=== PATIENT | female | born 1995 | race Caucasian/White ===

== ENCOUNTER 2017-09-24 15:42 | Emergency (ER) | payer BC ==
--- OUTSIDE RECORDS SUMMARY | 2017-09-24 15:44 | XMS REPORT ---
:1995 [facility] Address [address] [place] [address] Dr. Yepez [address] [place] [address] Care Team Providers Name Role Phone UNKNOWN, REFFERING Primary Care Provider Unavailable VIRGINIA ZHOU M.D. Unavailable Unavailable Problems This patient has no known problems. Allergies, Adverse Reactions, Alerts This patient has no known allergies or adverse reactions. Medications This patient has no known medications. Encounters Start End Encounter Admission Attending Care Care Encounter Date/Time Date/Time Type Type Clinicians Facility Department ID 2017-05-09 2017-05-09 Outpatient C [facility] [id number] 10:15:00 10:15:00 VIRGINIA Arellano M.D. Results Test Description Test Time Test Comments Text Results Atomic Results Result Comments BHCG, Urine, Qualitative 2017-07-25 12:34:00 Test Item Value Reference Range Comments Preg Qual [Ur] (test code=HUHCG) Negative Negative BHCG, Urine, [id number] 12:16:00 Test Item Value Reference Range Comments Preg Qual [Ur] (test code=HUHCG) Negative Negative
[2017-09-24] MEDS ORDERED: MORPHINE 4 MG/ML SYR ONE (16:28)
[2017-09-24] MEDS ORDERED: ONDANSETRON 4 MG/2 ML VIAL ONE (16:28)
[2017-09-24 16:45] LABS: Absolute Lymphocytes (CBC) 3.2 K/uL (0.7-4.9); Absolute Monocytes 0.8 K/uL (0.1-1.3); Absolute Neutrophil 9.1 K/uL (1.8-8.0); Basophils % 0.4 % (0-1.3); Hematocrit 38.4 % (36.0-45.0); Lymphocytes % 24.3 % (15.3-44.8); MCH 28.6 pg (27.0-35.0); MCV 85.4 fL (80-100); MPV 8.9 fL (7.6-11.3); Monocytes % 6.1 % (3.3-12.3); RBC Red Blood Cell Count 4.49 M/uL (3.86-4.86)
[2017-09-24 16:55] LABS: Potassium 3.5 mEq/L (3.6-5.0)
[2017-09-24 16:56] LABS: Protime INR 1.01
[2017-09-24 17:02] LABS: Albumin 3.8 g/dL (3.2-5.5); Bilirubin Direct 0.2 mg/dL (0-0.2); Bilirubin Total 1.3 mg/dL (0.3-1.2); Protein, Total 7.4 g/dL (6.0-8.3)
[2017-09-24 18:02] LABS: Urine Blood NEGATIVE (NEG); Urine Glucose NEGATIVE (NEG); Urine Protein NEGATIVE (NEG); Urine pH 7.5 (5.0-7.0)
--- NOTE | 2017-09-24 18:55 | RAD REPORT ---
EXAM DESCRIPTION: CTAbdomen Pelvis W Contrast - 09/24/2017 6:37 pm CLINICAL HISTORY: Abdominal pain. ABD PAIN COMPARISON: No comparisons TECHNIQUE: Biphasic CT imaging of the abdomen and pelvis was performed with 100 ml non-ionic IV cont rast. All CT scans are performed using dose optimization technique as appropriate and may include automated exposure control or mA/KV adjustment according to patient size. FINDINGS: The lung bases are clear. The liver, spleen, pancreas, adrenal glands and kidneys are within normal limits. No bowel obstruction, free air, free fluid or abscess. Small subacute bruise is suspected along the r ight abdomen. The appendix is normal. No evidence of significant lymphadenopathy. No suspicious bony findings. IMPRESSION: No acute intra-abdominal or pelvic finding.
[2017-09-24 19:21] LABS: Urine Bacteria <20 /HPF (<20); Urine Culture Reflex Order NOT NEEDED; Urine RBC <5 /HPF (NONE SEEN)
--- NOTE | 2017-09-24 19:26 | EDPHYS ---
Physician Documentation [facility] Name: Latrell Tam Age: 22 yrs Sex: Female : 1995 Arrival Date: 09/24/2017 Time: 15:46 Bed 6 Private MD: None, None ED Physician Tawanda Moon HPI: 09/24 17:00 This 22 yrs old Female presents to ER via Ambulatory with complaints of pm1 Abdominal Problem. 17:00 The patient presents with abdominal pain in the periumbilical area. Onset: The pm1 symptoms/episode began/occurred 1.5 week(s) ago. The symptoms do not radiate. Associated signs and symptoms: Pertinent positives: bruising to abdomen, Pertinent negatives: nausea, vomiting, and diarrhea, dysuria, fever. The symptoms are described as achy. Modifying factors: The symptoms are alleviated by nothing, the symptoms are aggravated by touching the area. Severity of pain: in the emergency department the pain is unchanged. The patient has not experienced similar symptoms in the past. The patient has not recently seen a physician. 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 Pneumococcal vaccine is not up to date, Flu vaccine is not up to date. - Social history:: Smoking status: Patient uses tobacco products, smokes one-half pack cigarettes per day. - Ebola Screening: : Patient negative for fever greater than or equal to 101.5 degrees Fahrenheit, and additional compatible Ebola Virus Disease symptoms. ROS: 17:00 Constitutional: Negative for fever, chills, and weight loss, Eyes: Negative for injury, pm1 pain, redness, and discharge, ENT: Negative for injury, pain, and discharge, Neck: Negative for injury, pain, and swelling, Cardiovascular: Negative for chest pain, palpitations, and edema, Respiratory: Negative for shortness of breath, cough, wheezing, and pleuritic chest pain. 17:00 Back: Negative for injury and pain, : Negative for injury, bleeding, discharge, and swelling, MS/Extremity: Negative for injury and deformity. 17:00 Neuro: Negative for headache, weakness, numbness, tingling, and seizure. 17:00 Abdomen/GI: Positive for abdominal pain, Negative for nausea, vomiting, and diarrhea. 17:00 Skin: Positive for ecchymosis, of the umbilical area. Exam: 17:00 Constitutional: This is a well developed, well nourished patient who is awake, alert, pm1 and in no acute distress. Head/Face: Normocephalic, atraumatic. Eyes: Pupils equal round and reactive to light, extra-ocular motions intact. Lids and lashes normal. Conjunctiva and sclera are non-icteric and not injected. Cornea within normal limits. Periorbital areas with no swelling, redness, or edema. ENT: Nares patent. No nasal discharge, no septal abnormalities noted. Tympanic membranes are normal and external auditory canals are clear. Oropharynx with no redness, swelling, or masses, exudates, or evidence of obstruction, uvula midline. Mucous membranes moist. Neck: Trachea midline, no thyromegaly or masses palpated, and no cervical lymphadenopathy. Supple, full range of motion without nuchal rigidity, or vertebral point tenderness. No Meningismus. Chest/axilla: Normal chest wall appearance and motion. Nontender with no deformity. No lesions are appreciated. Cardiovascular: Regular rate and rhythm with a normal S1 and S2. No gallops, murmurs, or rubs. Normal PMI, no JVD. No pulse deficits. Respiratory: Lungs have equal breath sounds bilaterally, clear to auscultation and percussion. No rales, rhonchi or wheezes noted. No increased work of breathing, no retractions or nasal flaring. 17:00 Back: No spinal tenderness. No costovertebral tenderness. Full range of motion. Skin: Warm, dry with normal turgor. Normal color with no rashes, no lesions, and no evidence of cellulitis. MS/ Extremity: Pulses equal, no cyanosis. Neurovascular intact. Full, normal range of motion. 17:00 Abdomen/GI: Inspection: bruising, umbilical area, Bowel sounds: normal, Palpation: abdomen is soft and non-tender, mass, is not appreciated, rebound tenderness, is not appreciated. 17:00 Neuro: Orientation: is normal, Motor: is normal, moves all fours, strength is normal, Gait: is steady, at a normal pace, without difficulty. Vital Signs: 16:06 BP 135 / 89; Pulse 100; Resp 17; Temp 99.0; Pulse Ox 97% ; rk2 17:18 BP 126 / 95; Pulse 89; Resp 18; Pulse Ox 98% on R/A; ph 19:14 BP 102 / 77; Pulse 65; Resp 18; Pulse Ox 99% on R/A; ph MDM: 16:00 Patient medically screened. pm1 19:25 Data reviewed: vital signs. Data interpreted: Pulse oximetry: on room air is 99 %. pm1 Interpretation: normal. Counseling: I had a detailed discussion with the patient and/or guardian regarding: the historical points, exam findings, and any diagnostic results supporting the discharge/admit diagnosis, lab results, radiology results, the need for outpatient follow up, to return to the emergency department if symptoms worsen or persist or if there are any questions or concerns that arise at home. 09/24 16:08 Order name: Basic Metabolic Panel; Complete Time: 17:24 pm1 09/24 16:08 Order name: CBC with Diff; Complete Time: 17:24 pm1 09/24 16:08 Order name: Creatinine for Radiology; Complete Time: 17:24 pm1 09/24 16:08 Order name: Hepatic Function; Complete Time: 17:24 pm1 09/24 16:08 Order name: Lipase; Complete Time: 17:24 pm1 09/24 16:08 Order name: Urine Microscopic Only; Complete Time: 19:41 pm1 09/24 16:08 Order name: PT-INR; Complete Time: 17:24 pm1 09/24 16:08 Order name: Ptt, Activated; Complete Time: 17:24 pm1 09/24 16:08 Order name: CT Abd/Pelvis - W/Contrast; Complete Time: 19:15 pm1 09/24 17:55 Order name: Urine Dipstick--Ancillary (enter results) em09/24 17:55 Order name: Urine --Ancillary (enter results) em09/24 17:55 Order name: Urine Dipstick-Ancillary; Complete Time: 18:03 EDMS 09/24 17:55 Order name: Urine --Ancillary; Complete Time: 18:03 EDMS 09/24 16:08 Order name: Urine Test (obtain specimen); Complete Time: 17:52 pm1 09/24 16:08 Order name: IV Saline Lock; Complete Time: 16:49 pm1 09/24 16:08 Order name: Labs collected and sent; Complete Time: 16:49 pm1 09/24 16:08 Order name: Urine Dipstick-Ancillary (obtain specimen); Complete Time: 17:52 pm1 Administered Medications: 16:47 Drug: morphine 4 mg Route: IVP; Site: left antecubital; ph 19:13 Follow up: Response: No adverse reaction; Pain is decreased ph 16:47 Drug: Zofran 4 mg Route: IVP; Site: left antecubital; ph 19:13 Follow up: Response: No adverse reaction ph 16:48 Drug: NS 0.9% 1000 ml Route: IV; Rate: 1000 ml; Site: left antecubital; ph 19:12 Follow up: Response: No adverse reaction; IV Status: Completed infusion ph Disposition: 09/25 13:15 Co-signature as Attending Physician, Tawanda Moon MD. Disposition: 09/24/17 19:25 Discharged to Home. Impression: Unspecified abdominal pain. - Condition is Stable. - Discharge Instructions: Abdominal Pain, Adult, Contusion. - Medication Reconciliation Form, Thank You Letter form. - Follow up: Emergency Department; When: As needed; Reason: Worsening of condition. Follow up: Private Physician; When: 2 - 3 days; Reason: Recheck today's complaints, Continuance of care, Re-evaluation by your physician. - Problem is new. - Symptoms have improved. Signatures: Dispatcher [employer] EDVA Gayle Hannah RN RN Rocky Brown RN RN ao Biju Lake, ANCILLARY SPECIALIST ANCILLARY SPECIALIST pm1 Tawanda Moon MD MD Bere Saunders RN RN rk2 Corrections: (The following items were deleted from the chart) 09/24 19:51 19:25 09/24/2017 19:25 Discharged to Home. Impression: Unspecified abdominal pain. ao Condition is Stable. Forms are Medication Reconciliation Form, Thank You Letter, Antibiotic Education, Prescription Opioid Use. Follow up: Emergency Department; When: As needed; Reason: Worsening of condition. Follow up: Private Physician; When: 2 - 3 days; Reason: Recheck today's complaints, Continuance of care, Re-evaluation by your physician. Problem is new. Symptoms have improved. pm1
--- NOTE | 2017-09-24 19:26 | ER ---
Nurse's Notes [facility] Name: Latrell Tam Age: 22 yrs Sex: Female : 1995 Arrival Date: 09/24/2017 Time: 15:46 Bed 6 Private MD: None, None Diagnosis: Unspecified abdominal pain Presentation: 09/24 16:01 Presenting complaint: Patient states: Pt. noticed random bruising on her abd x 1 1/2 rk2 weeks ago. Denies trauma/assault. Transition of care: patient was not received from another setting of care. Onset of symptoms was September 24, 2017. Risk Assessment: Do you want to hurt yourself or someone else? Patient reports no desire to harm self or others. Initial Sepsis Screen: Does the patient meet any 2 criteria? No. Patient's initial sepsis screen is negative. Does the patient have a suspected source of infection? Yes:. Care prior to arrival: None. 16:01 Method Of Arrival: Ambulatory rk2 16:01 Acuity: MAI 3 rk2 Triage Assessment: 16:08 General: Appears in no apparent distress. well groomed, well developed, well nourished, rk2 Behavior is calm. Pain: Complains of pain in abdomen. 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 Pneumococcal vaccine is not up to date, Flu vaccine is not up to date. - Social history:: Smoking status: Patient uses tobacco products, smokes one-half pack cigarettes per day. - Ebola Screening: : Patient negative for fever greater than or equal to 101.5 degrees Fahrenheit, and additional compatible Ebola Virus Disease symptoms. Screenin:16 Abuse screen: Denies threats or abuse. Denies injuries from another. Nutritional ph screening: No deficits noted. Tuberculosis screening: No symptoms or risk factors identified. Fall Risk None identified. Assessment: 16:51 General: Appears in no apparent distress. uncomfortable, obese, well groomed, Behavior ph is calm, cooperative, appropriate for age, Denies fever, feeling ill. Pain: Complains of pain in middle of lower abdomen, below umbilical area. Neuro: Level of Consciousness is awake, alert, obeys commands, Oriented to person, place, time, situation. Cardiovascular: Denies chest pain, lightheadedness, shortness of breath. Respiratory: Airway is patent Respiratory effort is even, unlabored, Respiratory pattern is regular, symmetrical. GI: Abdomen is obese, bruised on right lower quadrant and left lower quadrant Bowel sounds present X 4 quads. Abd is soft X 4 quads Abdomen is tender to palpation in right lower quadrant and left lower quadrant Reports lower abdominal pain, nausea, Patient currently denies diarrhea, vomiting. Derm: Skin is intact, is healthy with good turgor, Skin is pink, warm \T\ dry. Musculoskeletal: Circulation, motion, and sensation intact. Range of motion: intact in all extremities. 17:16 Reassessment: Patient appears in no apparent distress at this time. Patient and/or ph family updated on plan of care and expected duration. Pain level reassessed. Patient is alert, oriented x 3, equal unlabored respirations, skin warm/dry/pink. Pt completed PO contrast \T\ 1700, CT notified. 18:30 Reassessment: Patient appears in no apparent distress at this time. Patient and/or ph family updated on plan of care and expected duration. Pain level reassessed. Patient is alert, oriented x 3, equal unlabored respirations, skin warm/dry/pink. Pt resting quietly, awaiting CT results. 19:49 Reassessment: DC instructions given to patient. Patient agree with the POC and to ao follow up with PCP. General: Appears in no apparent distress. Vital Signs: 16:06 BP 135 / 89; Pulse 100; Resp 17; Temp 99.0; Pulse Ox 97% ; rk2 17:18 BP 126 / 95; Pulse 89; Resp 18; Pulse Ox 98% on R/A; ph 19:14 BP 102 / 77; Pulse 65; Resp 18; Pulse Ox 99% on R/A; ph ED Course: 15:46 Patient arrived in ED. sb2 15:46 None, None is Private Physician. sb2 15:58 Biju Lake [facility] pm1 15:58 Tawanda Moon MD is Attending Physician. pm1 16:05 Triage completed. rk2 16:15 Inserted saline lock: 20 gauge in left antecubital area, using aseptic technique. Blood ph collected. 16:45 Gayle Hannah, RN is Primary Nurse. ph 17:17 Patient has correct armband on for positive identification. Bed in low position. Call ph light in reach. Side rails up X 1. Pulse ox on. NIBP on. Warm blanket given. 18:36 CT completed. Patient moved to CT via wheelchair. Patient moved back from CT. nj 18:37 CT Abd/Pelvis - W/Contrast In Process Unspecified. EDMS 19:11 Arm band placed on. ph 19:50 No provider procedures requiring assistance completed. IV discontinued, intact, ao bleeding controlled, No redness/swelling at site. Pressure dressing applied. Administered Medications: 16:47 Drug: morphine 4 mg Route: IVP; Site: left antecubital; ph 19:13 Follow up: Response: No adverse reaction; Pain is decreased ph 16:47 Drug: Zofran 4 mg Route: IVP; Site: left antecubital; ph 19:13 Follow up: Response: No adverse reaction ph 16:48 Drug: NS 0.9% 1000 ml Route: IV; Rate: 1000 ml; Site: left antecubital; ph 19:12 Follow up: Response: No adverse reaction; IV Status: Completed infusion ph Outcome: 19:25 Discharge ordered by MD. pm1 19:51 Discharged to home ambulatory. ao 19:51 Condition: stable 19:51 Discharge instructions given to patient, Instructed on discharge instructions, follow up and referral plans. Demonstrated understanding of instructions, follow-up care, medications. 19:51 Patient left the ED. ao Signatures: Dispatcher [employer] EDIA Gayle Hannah RN RN Rocky Brown RN RN ao Marinas, Patrick, ROBIN CORRIDOR REDEVELOPMENT MANAGER pm1 Cisco Donnelly Rhonda, RN RN rk2 Svetlana Mercado2
== END 2017-09-24 19:51 | disposition home or self-care (01) ==
LOC: ER 15:42
DX: R10.9 Unspecified abdominal pain (principal); F17.210 Nicotine dependence, cigarettes, uncomplicated
CPT/HCPCS: 36415; 74177; 80048; 80076; 81003; 81015; 81025; 83690; 85025; 85610; 85730; 96361; 96374; 96375; 99284; J2405; Q9967

== ENCOUNTER 2018-09-22 10:18 | Emergency (ER) | payer BC, SELFPAY ==
--- OUTSIDE RECORDS SUMMARY | 2018-09-22 10:21 | XMS REPORT ---
:1995 [facility] Address [address] [place] [address] Dr. Yepez [address] [place] [id number] Care Team Providers Name Role Phone UNKNOWN, [...] Facility Department ID 2017-05-09 2017-05-09 [id number] 10:15:00 10:15:00 VIRGINIA Arellano M.D. Results Test Description Test Time Test Comments Text Results Atomic Results Result Comments BHCG, Urine, Qualitative 2017-07-25 12:34:00 Test Item Value Reference Range Comments Preg Qual [Ur] (test code=HUHCG) Negative Negative BHCG, Urine, [id number] 12:16:00 Test Item Value Reference Range Comments Preg Qual [Ur] (test code=HUHCG) Negative Negative
--- OUTSIDE RECORDS SUMMARY | 2018-09-22 10:21 | XMS REPORT ---
:1995 Author Organization [employer] Care Team Providers Name Role Phone Jennifer Fuentes Provider Role Unavailable Allergies, Adverse Reactions, Alerts Substance Reaction Event Type Latex rash Drug Allergy Lysol SOB Non Drug Allergy Problems Problem Type Condition Code Onset Dates Condition Status Assessment Alcohol abuse F10.10 Active Assessment Depression with anxiety F41.8 Active Assessment Neuropathy G62.9 Active Problem Alcohol abuse F10.10 Active Problem Depression with anxiety F41.8 Active Problem Neuropathy G62.9 Active Problem Iron deficiency anemia, unspecified D50.9 Active iron deficiency anemia type Problem Prediabetes R73.03 Active Problem Menorrhagia with irregular cycle N92.1 Active Problem Allergic rhinitis, unspecified J30.9 Active Medications Medication Code Code Instructions Start End Status Dosage System Date Date Gabapentin ND 46493016914 300 MG Orally Nov 09, Active 1 capsule Once a day 2017 Sertraline HCl ND 49007385675 25 MG Orally Dec 12, Active 1 tablet Once a day 2017 Disulfiram ND 41967049129 250 MG Orally Dec 12, Active 1 tablet Once a day 2018 Wellbutrin XL ND 52760244425 300 MG Orally October 09, Active 1 tablet Once a day 2018 in the morning Results No Known Results Summary Purpose eClinicalWorks Submission
--- OUTSIDE RECORDS SUMMARY | 2018-09-22 10:21 | XMS REPORT ---
:1995 Author Organization [employer] Care Team Providers Name Role Phone Jennifer Fuentes Provider Role Unavailable Allergies, Adverse Reactions, Alerts Substance Reaction Event Type Latex rash Drug Allergy Lysol SOB Non Drug Allergy Problems Problem Type Condition Code Onset Dates Condition Status Assessment Prediabetes R73.03 Active Problem Menorrhagia with irregular cycle N92.1 Active Problem Allergic rhinitis, unspecified J30.9 Active Problem Depression with anxiety F41.8 Active Assessment Depression with anxiety F41.8 Active Problem Iron deficiency anemia, unspecified D50.9 Active iron deficiency anemia type Problem Prediabetes R73.03 Active Medications Medication Code Code Instructions Start End Status Dosage System Date Date Gabapentin ND 75426050436 100 MG Orally Nov 09, Active 1 capsule Once a day 2017 Wellbutrin XL ND 79605218514 300 MG Orally October 09, Active 1 tablet Once a day 2018 in the morning Results No Known Results Summary Purpose eClinicalWorks Submission
--- OUTSIDE RECORDS SUMMARY | 2018-09-22 10:21 | XMS REPORT ---
:1995 Author Organization [employer] Care Team Providers Name Role Phone Jennifer Fuentes Provider Role Unavailable Allergies No Known Allergies Problems Problem Type Condition Code Onset Dates Condition Status Problem Menorrhagia with irregular cycle N92.1 Active Problem Allergic rhinitis, unspecified J30.9 Active Problem Depression with anxiety F41.8 Active Problem Iron deficiency anemia, unspecified D50.9 Active iron deficiency anemia type Problem Prediabetes R73.03 Active Medications No Known Medications Results No Known Results Summary Purpose eClinicalWorks Submission
--- OUTSIDE RECORDS SUMMARY | 2018-09-22 10:21 | XMS REPORT ---
:1995 Author Organization [employer] Care Team Providers Name Role Phone Jennifer Fuentes Provider Role Unavailable Allergies, Adverse Reactions, Alerts Substance Reaction Event Type Latex rash Drug Allergy Lysol SOB Non Drug Allergy Problems Problem Type Condition Code Onset Dates Condition Status Assessment Iron deficiency anemia, unspecified D50.9 Active iron deficiency anemia type Assessment Prediabetes R73.03 Active Assessment Menorrhagia with irregular cycle N92.1 Active Problem Menorrhagia with irregular cycle N92.1 Active Problem Allergic rhinitis, unspecified J30.9 Active Problem Depression with anxiety F41.8 Active Assessment Depression with anxiety F41.8 Active Problem Iron deficiency anemia, unspecified D50.9 Active iron deficiency anemia type Problem Prediabetes R73.03 Active Medications Medication Code Code Instructions Start End Status Dosage System Date Date Wellbutrin XL [facility] 97429393666 150 MG Orally October 09, Active 1 tablet Once a day 2018 in the morning Results Name Result Date Reference Range Unit Abnormality Flag IRON AND TOTAL IRON BINDING CAPACITY ----% SATURATION 17 [id number] 11-50 % (calc) N ----IRON, TOTAL 59 [id number] 40-190 mcg/dL N ----IRON BINDING 348 [id number] 250-450 mcg/dL N CAPACITY (calc) TSH ----TSH 1.56 [id number] mIU/L N COMPREHENSIVE METABOLIC PANEL(CMP) ----ALBUMIN/GLOBULI 1.4 [id number] 1.0-2.5 (calc) N N RATIO ----GLOBULIN 3.1 [id number] 1.9-3.7 g/dL (calc) N ----ALKALINE 85 20171013 33-115 U/L N PHOSPHATASE ----BILIRUBIN, 1.0 20171013 0.2-1.2 mg/dL N TOTAL ----CHLORIDE 105 [id number] 98-110 mmol/L N ----ALT 21 [id number] 6-29 U/L N ----POTASSIUM 4.5 [id number] 3.5-5.3 mmol/L N ----AST 19 20171013 10-30 U/L N ----SODIUM 138 90391429 135-146 mmol/L N ----BUN/CREATININE NOT APPLICABLE [id number] 6-22 (calc) RATIO ----eGFR 146 [id number] > OR=60 mL/min/1.73 N [place] m2 ----CALCIUM 9.1 20171013 8.6-10.2 mg/dL N ----CARBON DIOXIDE 26 20171013 20-31 mmol/L N ----ALBUMIN 4.2 [id number] 3.6-5.1 g/dL N ----PROTEIN, TOTAL 7.3 26712450 6.1-8.1 g/dL N ----GLUCOSE 91 67221581 65-99 mg/dL N ----UREA NITROGEN 11 20171013 7-25 mg/dL N (BUN) ----CREATININE 0.64 20171013 0.50-1.10 mg/dL N ----eGFR NON-AFR. 126 [id number] > OR=60 mL/min/1.73 [place] [address] HEMOGLOBIN A1c ----HEMOGLOBIN A1c 5.7 [id number] <5.7 % of total H Hgb Summary Purpose eClinicalWorks Submission
--- OUTSIDE RECORDS SUMMARY | 2018-09-22 10:21 | XMS REPORT | Clinical Summary ---
:1995 Author Organization [facility] Address [address] [place] [address] Care Team Providers Name Role Phone Unavailable Primary Care Provider Unavailable Allergies Not on File Medications Not on file Active Problems Not on file Encounters Date Type Specialty Care Team Description 01/03/2018 Lab Lab Demetrio Becker MD after 09/21/2017 Social History Tobacco Use Types Packs/Day Years Used Date Never Assessed Sex Assigned at Date Recorded Not on file Job Start Date Occupation Industry Not on file Not on file Not on file Travel History Travel Start Travel End No recent travel history available. Last Filed Vital Signs Not on file Plan of Treatment Health Maintenance Due Date Last Done Comments CHLAMYDIA SCREENING 2010 INFLUENZA VACCINE 11/08/2018 Procedures Procedure Name Priority Date/Time Associated Comments Diagnosis OPHTHALMOLOGY PATHOGEN Routine 01/03/2018 2:05 Results for this MULTIPLEX PANEL PM CDT procedure are in the results section. after 09/21/2017 Results Ophthalmology pathogen multiplex panel (01/03/2018 2:05 PM CDT) Cytomegalovirus by PCR, Not-Detected Not-Detected [facility] OF eye PATHOLOGY AND GENOMIC MEDICINE Herpes simplex virus 1 Not-Detected Not-Detected [facility] OF by PCR, eye PATHOLOGY AND GENOMIC MEDICINE Herpes simplex virus 2 Not-Detected Not-Detected [facility] OF by PCR, eye PATHOLOGY AND GENOMIC MEDICINE Toxoplasma gondii by Not-Detected Not-Detected [facility] OF PCR, eye PATHOLOGY AND GENOMIC MEDICINE Varicella zoster virus Not-Detected Not-Detected [facility] OF by PCR, eye PATHOLOGY AND GENOMIC MEDICINE Ophthalmology pathogen See link [facility] OF multiplex panel below for PDF PATHOLOGY AND Lab GENOMIC MEDICINE ReportComment : Specimen Performing Organization Address City/State/Zipcode Phone Number [facility]PARTMENT OF PATHOLOGY AND [address] [place] [address] GENOMIC MEDICINE after 09/21/2017 ([place]) [place] [phone] Advance Directives Patient has advance care planning documents on file. For more information, please contact:Thomas Marshall[address] [place] [address]
[2018-09-22 11:42] LABS: Urine Blood NEGATIVE (NEG); Urine Glucose NEGATIVE (NEG); Urine Protein TRACE (NEG); Urine Specific Gravity 1.025 (1.005-1.030)
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
--- NOTE | 2018-09-22 12:03 | EDPHYS ---
Physician Documentation [facility] Name: Latrell Tam Age: 23 yrs Sex: Female : 1995 Arrival Date: 09/22/2018 Time: 10:23 Bed 17 Private MD: None, None ED Physician Tawanda Moon HPI: 09/22 10:45 This 23 yrs old Female presents to ER via Ambulatory with complaints of cp Allergic Reaction. 10:45 The patient presents with localized swelling, redness of skin. Onset: The cp symptoms/episode began/occurred this morning, upon awakening. Associated signs and symptoms: Pertinent negatives: dysphagia, fever, hives, shortness of breath. Possible causes: At home the patient or guardian has treated the symptoms with nothing. 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 - Social history:: Smoking status: Patient uses tobacco products, smokes one pack cigarettes per day. - Ebola Screening: : Patient negative for fever greater than or equal to 101.5 degrees Fahrenheit, and additional compatible Ebola Virus Disease symptoms Patient denies exposure to infectious person Patient denies travel to an Ebola-affected area in the 21 days before illness onset No symptoms or risks identified at this time. ROS: 10:55 Constitutional: Negative for body aches, chills, fever, poor PO intake. cp 10:55 Eyes: Positive for swelling, of the right upper eyelid and left upper eyelid, Negative cp for discharge, redness. 10:55 ENT: Negative for drainage from ear(s), ear pain, sore throat, difficulty swallowing, difficulty handling secretions. 10:55 Cardiovascular: Negative for chest pain, palpitations. 10:55 Respiratory: Negative for cough, shortness of breath, wheezing. 10:55 Abdomen/GI: Negative for abdominal pain, nausea, vomiting, and diarrhea. 10:55 : Negative for urinary symptoms, vaginal bleeding, vaginal discharge. 10:55 Neuro: Negative for altered mental status, headache, weakness. 10:55 All other systems are negative. Exam: 11:00 Constitutional: The patient appears in no acute distress, alert, awake, cp non-diaphoretic, non-toxic, well developed, well nourished. 11:00 Head/face: Noted is swelling, that is mild, of the left upper eyelid and right upper cp eyelid. 11:00 Eyes: Pupils: equal, round, and reactive to light and accomodation, Extraocular movements: intact throughout, Conjunctiva: normal, no exudate, no injection, Sclera: no appreciated abnormality, Lids and lashes: appear normal, bilaterally. 11:00 ENT: External ear(s): are unremarkable, Ear canal(s): are normal, clear, TM's: bulging, is not appreciated, bilaterally, dullness, bilaterally, erythema, is not appreciated, bilaterally, Nose: is normal, Mouth: Lips: moist, Oral mucosa: moist, Posterior pharynx: is normal, airway is patent, no erythema, no exudate. 11:00 Neck: External neck: is normal, ROM/movement: is normal, is supple, without pain, no range of motions limitations, no meningismus, no nuchal rigidity, Lymph nodes: no appreciated lymphadenopathy. 11:00 Chest/axilla: Inspection: normal, Palpation: is normal, no crepitus, no tenderness. 11:00 Cardiovascular: Rate: tachycardic. 11:00 Respiratory: the patient does not display signs of respiratory distress, Respirations: normal, no use of accessory muscles, no retractions, no splinting, no tachypnea, labored breathing, is not present, Breath sounds: are clear throughout, no decreased breath sounds, rhonchi, no stridor, no wheezing. 11:00 Abdomen/GI: Inspection: abdomen appears normal, Palpation: abdomen is soft and non-tender, in all quadrants. 11:00 Skin: no rash present. 11:00 Neuro: Orientation: to person, place \T\ time. Mentation: is normal, Cerebellar function: is grossly normal, Motor: moves all fours, strength is normal, Sensation: is normal. Vital Signs: 10:37 BP 121 / 71; Pulse 100; Resp 16 S; Temp 97.8(TE); Pulse Ox 98% on R/A; Weight 95.25 kg; iw Height 5 ft. 7 in. (170.18 cm); Pain 6/10; 11:56 BP 124 / 90; Pulse 89; Resp 16; Temp 97.7(TE); Pulse Ox 98% on R/A; mh5 10:37 Body Mass Index 32.89 (95.25 kg, 170.18 cm) iw MDM: 10:31 Patient medically screened. cp 11:00 Differential diagnosis: anaphylaxis, angioedema, urticaria. cp 12:01 Data reviewed: vital signs, nurses notes, and as a result, I will discharge patient. cp 12:01 Counseling: I had a detailed discussion with the patient and/or guardian regarding: the cp historical points, exam findings, and any diagnostic results supporting the discharge/admit diagnosis, to return to the emergency department if symptoms worsen or persist or if there are any questions or concerns that arise at home. Response to treatment: the patient's symptoms have markedly improved after treatment, and as a result, I will discharge patient. 12:01 ED course: VSS. Patient reports symptoms improved. 09/22 11:02 Order name: Urine Dipstick--Ancillary (enter results) ms 09/22 11:02 Order name: Urine --Ancillary (enter results) ms 09/22 10:37 Order name: Urine Dipstick-Ancillary (obtain specimen); Complete Time: 11:02 cp 09/22 10:37 Order name: Urine Test (obtain specimen); Complete Time: 11:02 cp 09/22 10:37 Order name: Accucheck Blood Glucose; Complete Time: 11:02 cp Administered Medications: 10:59 Drug: Benadryl 50 mg Route: PO; em 12:14 Follow up: Response: No adverse reaction em 10:59 Drug: predniSONE 60 mg Route: PO; em 12:15 Follow up: Response: No adverse reaction em 11:00 Drug: Pepcid 20 mg Route: PO; em 12:15 Follow up: Response: No adverse reaction em Point of Care Testing: Blood Glucose: 11:05 Blood Glucose: 95 mg/dL; em Ranges: Critical Glucose Levels:Adult <50 mg/dl or >400 mg/dl <40 mg/dl or >180 mg/dl Disposition: 12:30 Chart complete. Disposition: 09/22/18 12:02 Discharged to Home. Impression: Allergic dermatitis of eyelid - bilateral. - Condition is Stable. - Discharge Instructions: Allergies, Adult. - Prescriptions for Zyrtec 10 mg Oral Tablet - take 1 tablet by ORAL route once daily As needed; 20 tablet. Prednisone 20 mg Oral Tablet - take 2 tablets by ORAL route once daily for 5 days start morning of 09-23-2018; 10 tablet. Pepcid 20 mg Oral Tablet - take 1 tablet by ORAL route every 12 hours for 5 days; 10 tablet. - Work release form, Medication Reconciliation Form, Thank You Letter, Antibiotic Education, Prescription Opioid Use form. - Follow up: Emergency Department; When: As needed; Reason: Worsening of condition. - Problem is new. - Symptoms have improved. Addendum: 09/23/2018 15:17 Co-signature as Attending Physician, Tawanda Moon MD. g s Signatures: Dispatcher [employer] EDJatin Johnson, SHOT GRINDER OPERATOR SHOT GRINDER OPERATOR em Fatmata Dumont RN RN iw Edi Robison, PA PA cp Tawanda Moon MD MD Corrections: (The following items were deleted from the chart) 09/22 12:03 12:02 09/22/2018 12:02 Discharged to Home. Impression: Localized swelling, mass and cp lump, head. Condition is Stable. Forms are Medication Reconciliation Form, Thank You Letter, Antibiotic Education, Prescription Opioid Use. Follow up: Emergency Department; When: As needed; Reason: Worsening of condition. Problem is new. Symptoms have improved. cp 12:23 12:03 09/22/2018 12:02 Discharged to Home. Impression: Allergic dermatitis of eyelid - em bilateral. Condition is Stable. Forms are Medication Reconciliation Form, Thank You Letter, Antibiotic Education, Prescription Opioid Use. Follow up: Emergency Department; When: As needed; Reason: Worsening of condition. Problem is new. Symptoms have improved. cp
== END 2018-09-22 12:23 | disposition home or self-care (01) ==
LOC: ER 10:18
DX: L23.9 Allergic contact dermatitis, unspecified cause (principal)
CPT/HCPCS: 81003; 81025; 82962; 99283

== ENCOUNTER 2019-02-22 16:32 | Emergency (ER) | payer SELFPAY ==
--- OUTSIDE RECORDS SUMMARY | 2019-02-22 16:36 | XMS REPORT ---
[...] Status Dosage System Date Date Wellbutrin XL [facility] [id number] 150 MG Orally October 09, Active 1 tablet Once a day 2018 in the morning Results Name Result Date Reference Range Unit Abnormality Flag IRON AND TOTAL IRON BINDING CAPACITY ----% SATURATION 17 [id number] 11-50 % (calc) N ----IRON, TOTAL 59 [id number] 40-190 mcg/dL N ----IRON BINDING 348 [id number] 250-450 mcg/dL N CAPACITY (calc) TSH ----TSH 1.56 [id number] mIU/L N COMPREHENSIVE METABOLIC PANEL(CMP) ----ALBUMIN/GLOBULI 1.4 [id number] 1.0-2.5 (calc) N N RATIO ----GLOBULIN 3.1 [id number] 1.9-3.7 g/dL (calc) N ----ALKALINE 85 [id number] 33-115 U/L N PHOSPHATASE ----BILIRUBIN, 1.0 [id number] 0.2-1.2 mg/dL N TOTAL ----CHLORIDE 105 [id number] 98-110 mmol/L N ----ALT 21 [id number] 6-29 U/L N ----POTASSIUM 4.5 [id number] 3.5-5.3 mmol/L N ----AST 19 [id number] 10-30 U/L N ----SODIUM 138 [id number] 135-146 mmol/L N ----BUN/CREATININE NOT APPLICABLE [id number] 6-22 (calc) RATIO ----eGFR 146 [id number] > OR=60 mL/min/1.73 N BRUNEIAN m2 ----CALCIUM 9.1 [id number] 8.6-10.2 mg/dL N ----CARBON DIOXIDE 26 [id number] 20-31 mmol/L N ----ALBUMIN 4.2 [id number] 3.6-5.1 g/dL N ----PROTEIN, TOTAL 7.3 [id number] 6.1-8.1 g/dL N ----GLUCOSE 91 [id number] 65-99 mg/dL N ----UREA NITROGEN 11 [id number] 7-25 mg/dL N (BUN) ----CREATININE 0.64 20171013 0.50-1.10 mg/dL N ----eGFR NON-AFR. 126 [id number] > OR=60 mL/min/1.73 N [place] [address] HEMOGLOBIN A1c ----HEMOGLOBIN A1c 5.7 [id number] <5.7 % of total H Hgb Summary Purpose eClinicalWorks Submission
--- OUTSIDE RECORDS SUMMARY | 2019-02-22 16:36 | XMS REPORT ---
:1995 [facility] Address [address] [place] [address] Care Team Providers Name Role Phone UNKNOWN, REFFERING Primary Care Provider Unavailable VIRGINIA ZHOU M.D. Unavailable Unavailable Payers Payer Name Policy Type Policy Number Effective Date Expiration Date Problems This patient has no known problems. Allergies, Adverse Reactions, Alerts Allergy Allergy Status Severity Reaction(s) Onset Inactive Treating Comments Name Type Date Date Clinician No Known DA Active U 2018-09 Allergies 00:00:0 0 Medications This patient has no known medications. Encounters Start End Encounter Admission Attending Care Care Encounter Date/Time Date/Time Type Type Clinicians Facility Department ID 2017-05-09 2017-05-09 Outpatient [facility] [id number] 10:15:00 10:15:00 VIRGINIA Arellano M.D. Results Test Description Test Time Test Comments Text Results Atomic Results Result Comments Urine Culture 2018-10-03 09:35:47 C Urine Added by >=100,000 cfu/ml GL_SJM_UA_CUL_IND Diphtheroids >=100,000 cfu/ml Diphtheroids (second type) Thyroid Stimulating Hormone 2018-10-03 01:10:50 Test Item Value Reference Range Comments TSH (test code=TSH) 1.210 mIU/mL 0.270-4.200 Lipid [id number] 01:10:49 Test Item Value Reference Range Comments Cholesterol Total (test 123 mg/dL 0-200 RISK OF HEART DISEASEPublished code=Cholesterol Total) by [employer] [employer] Analyte Optimal Borderline Increased RiskCHOL <200 200-239 >240TRIG <150 150-199 >200HDL Male >60 <40HDL Female >60 <50LDL <100 130-159 >160LDL Near optimal is 100-129 Triglycerides (test 111 mg/dL 9-200 code=Triglycerides) HDL (test code=HDL) 29 mg/dL 50-60 LDL (test code=LDL) 72 mg/dL 0-130 The equation being used in this calculation is LDL=(Chol - HDL) - (Trig / 5) VLDL (test code=VLDL) 22 mg/dL 5-40 The equation being used in this calculation is VLDL=Trig / 5 Chol/HDL (test 4.2 ratio 0.0-4.4 code=Chol/HDL) LDL/HDL Ratio (test 3 The equation being used in this code=LDL/HDL Ratio) calculation is LDL/HDL Ratio=LDL Calc/HDL Chol RPR [id number] 13:04:18 Test Item Value Reference Range Comments RPR Qual (test code=RPR Qual) Non-Reactive Non-Reactive Reactive Control (test code=Reactive Control) Reactive Weak Reactive Control (test code=Weak Reactive Weak Reactive Control) Non-Reactive Control (test code=Non-Reactive Non-Reactive Control) Lot # (test code=Lot #) [id number] Expiration Dt (test code=Expiration Dt) 10.31.20 Comprehensive Metabolic [id number] 02:56:34 Test Item Value Reference Range Comments Sodium Level (test code=Sodium 137.0 mmol/L 135.0-145.0 Level) Potassium Level (test code=Potassium 4.2 mmol/L 3.5-5.1 Level) Chloride Level (test code=Chloride 102 mmol/L 98-105 Level) CO2 (test code=CO2) 25 mmol/L 22-29 Anion Gap (test code=Anion Gap) 10 mmol/L 7-16 BUN (test code=BUN) 9.10 mg/dL 6.00-20.00 Creatinine Level (test 0.80 mg/dL 0.50-0.90 code=Creatinine Level) BUN/Creat Ratio (test code=BUN/Creat 11 Ratio) Glucose Level (test code=Glucose 85 mg/dL 70-115 Level) Calcium Level (test code=Calcium 9.5 mg/dL 8.3-10.5 Level) Alk Phos (test code=Alk Phos) 92 U/L 35-104 Bilirubin Total (test code=Bilirubin 2.6 mg/dL 0.1-0.9 Total) Albumin Level (test code=Albumin 4.5 g/dL 3.5-5.2 Level) Protein Total (test code=Protein 7.5 g/dL 6.4-8.3 Total) ALT (test code=ALT) 27 U/L 1-33 AST (test code=AST) 24 U/L 1-32 Specimen hemolyzed. Globulin (test code=Globulin) 3.0 g/dL 2.9-3.1 A/G Ratio (test code=A/G Ratio) 1.5 ratio Alcohol [id number] 02:56:34 Test Item Value Reference Range Comments Ethanol Level (test <0.00 g/dL 0.00-0.01 Intoxicated 0.080 g/dL or more code=Ethanol Level) Ethanol Inst (test <0 code=Ethanol Inst) Comprehensive Metabolic [id number] 02:56:34 Test Item Value Reference Range Comments Sodium Level (test 137.0 mmol/L 135.0-145.0 code=Sodium Level) Potassium Level (test 4.2 mmol/L 3.5-5.1 code=Potassium Level) Chloride Level (test 102 mmol/L 98-105 code=Chloride Level) CO2 (test code=CO2) 25 mmol/L 22-29 Anion Gap (test 10 mmol/L 7-16 code=Anion Gap) BUN (test code=BUN) 9.10 mg/dL 6.00-20.00 Creatinine Level (test 0.80 mg/dL 0.50-0.90 code=Creatinine Level) BUN/Creat Ratio (test 11 code=BUN/Creat Ratio) Glucose Level (test 85 mg/dL 70-115 code=Glucose Level) Calcium Level (test 9.5 mg/dL 8.3-10.5 code=Calcium Level) Alk Phos (test code=Alk 92 U/L 35-104 Phos) Bilirubin Total (test 2.6 mg/dL 0.1-0.9 code=Bilirubin Total) Albumin Level (test 4.5 g/dL 3.5-5.2 code=Albumin Level) Protein Total (test 7.5 g/dL 6.4-8.3 code=Protein Total) ALT (test code=ALT) 27 U/L 1-33 AST (test code=AST) 24 U/L 1-32 Specimen hemolyzed. Globulin (test 3.0 g/dL 2.9-3.1 code=Globulin) A/G Ratio (test code=A/G 1.5 ratio Ratio) eGFR AA (test code=eGFR >60 mL/min/1.73 m2 eGFR (estimated AA) Glomerular Filtration Rate) is an estimated value, calculated from the patient's serum creatinine using the MDRD equation. It is NOT the patient's actual GFR. The eGFR provides a more clinically useful measure of kidney disease than serum creatinine alone.This calculation takes sex and race into account, if the information is provided. If the race is not provided, and the patient is -Bul[place]ian, multiply by 1.212. If sex is not provided, and the patient is female, multiply by 0.742. Results for patients <18 years of age have not been validated by the MDRD study and should be interpreted with caution. eGFR Result Interpretation:eGFR > or=60 is in the Normal RangeeGFR < 60 may mean kidney diseaseeGFR < 15 may mean kidney failure Ranges recommended by the National Kidney Foundation, http://nkdep.nih.gov Comprehensive Metabolic [id number] 02:56:34 Test Item Value Reference Range Comments Sodium Level (test 137.0 mmol/L 135.0-145.0 code=Sodium Level) Potassium Level (test 4.2 mmol/L 3.5-5.1 code=Potassium Level) Chloride Level (test 102 mmol/L 98-105 code=Chloride Level) CO2 (test code=CO2) 25 mmol/L 22-29 Anion Gap (test 10 mmol/L 7-16 code=Anion Gap) BUN (test code=BUN) 9.10 mg/dL 6.00-20.00 Creatinine Level (test 0.80 mg/dL 0.50-0.90 code=Creatinine Level) BUN/Creat Ratio (test 11 code=BUN/Creat Ratio) Glucose Level (test 85 mg/dL 70-115 code=Glucose Level) Calcium Level (test 9.5 mg/dL 8.3-10.5 code=Calcium Level) Alk Phos (test code=Alk 92 U/L 35-104 Phos) Bilirubin Total (test 2.6 mg/dL 0.1-0.9 code=Bilirubin Total) Albumin Level (test 4.5 g/dL 3.5-5.2 code=Albumin Level) Protein Total (test 7.5 g/dL 6.4-8.3 code=Protein Total) ALT (test code=ALT) 27 U/L 1-33 AST (test code=AST) 24 U/L 1-32 Specimen hemolyzed. Globulin (test 3.0 g/dL 2.9-3.1 code=Globulin) A/G Ratio (test code=A/G 1.5 ratio Ratio) eGFR AA (test code=eGFR >60 mL/min/1.73 m2 eGFR (estimated AA) Glomerular Filtration Rate) is an estimated value, calculated from the patient's serum creatinine using the MDRD equation. It is NOT the patient's actual GFR. The eGFR provides a more clinically useful measure of kidney disease than serum creatinine alone.This calculation takes sex and race into account, if the information is provided. If the race is not provided, and the patient is -Bulgarian, multiply by 1.212. If sex is not provided, and the patient is female, multiply by 0.742. Results for patients <18 years of age have not been validated by the MDRD study and should be interpreted with caution. eGFR Result Interpretation:eGFR > or=60 is in the Normal RangeeGFR < 60 may mean kidney diseaseeGFR < 15 may mean kidney failure Ranges recommended by the National Kidney Foundation, http://nkdep.nih.gov eGFR Non-AA (test >60.00 mL/min/1.73 eGFR (estimated code=eGFR Non-AA) m2 Glomerular Filtration Rate) is an estimated value, calculated from the patient's serum creatinine using the MDRD equation. It is NOT the patient's actual GFR. The eGFR provides a more clinically useful measure of kidney disease than serum creatinine alone.This calculation takes sex and race into account, if the information is provided. If the race is not provided, and the patient is -Bulgarian, multiply by 1.212. If sex is not provided, and the patient is female, multiply by 0.742. Results for patients <18 years of age have not been validated by the MDRD study and should be interpreted with caution. eGFR Result Interpretation:eGFR > or=60 is in the Normal RangeeGFR < 60 may mean kidney diseaseeGFR < 15 may mean kidney failure Ranges recommended by the National Kidney Foundation, http://nkdep.nih.gov Drugs of Abuse Urine [id number] 02:55:54 Test Item Value Reference Range Comments Amphetamine Screen Ur (test POSITIVE Negative For diagnostic purposes code=Amphetamine Screen Ur) only. Positive results should always be assessed in conjunction with a patient's medical history. Barbiturate Screen Ur (test Negative Negative code=Barbiturate Screen Ur) Benzodiazepines Ur (test Negative Negative code=Benzodiazepines Ur) Cocaine Screen Ur (test POSITIVE Negative code=Cocaine Screen Ur) U Methadone (test code=U Negative Negative Methadone) Opiate Screen Ur (test Negative Negative code=Opiate Screen Ur) U PCP Scrn (test code=U PCP Negative Negative Scrn) U Propoxyphene (test code=U Negative Negative Propoxyphene) Cannabinoid Screen Ur (test Negative Negative code=Cannabinoid Screen Ur) HCG Qualitative [id number] 02:41:18 Test Item Value Reference Range Comments hCG Ur (test code=hCG Ur) Negative If the result is "Negative" in patients suspected to be , recommend retest with a sample obtained 48 to 72 hours later, or by ordering a quantitative assay. If the result is "Borderline" testing should be repeated in 48 to 72 hours. Lot # (test code=Lot #) [id number] Expiration Dt (test 2020-01-08 code=Expiration Dt) Neg Control (test code=Neg Negative Control) Pos Control (test code=Pos Positive Control) Internal QC (test Acceptable code=Internal QC) Urinalysis [id number] 02:33:55 Test Item Value Reference Range Comments UA WBC (test code=UA WBC) 0-5 0-5 UA RBC (test code=UA RBC) None Seen 0-5 UA Bacteria (test code=UA Bacteria) Few UA Squam Epithelial (test code=UA Squam 11-19 Epithelial) Urinalysis with Culture, if [id number] 02:25:56 Test Item Value Reference Range Comments UA Color (test code=UA Color) YELLO Yellow UA Appear (test code=UA SCLD Clear Appear) UA pH (test code=UA pH) 5 UA Spec Grav (test code=UA 1.025 1.001-1.035 Spec Grav) UA Glucose (test code=UA NEG Negative Glucose) UA Bili (test code=UA Bili) NEG Negative UA Ketones (test code=UA 5 mg/dL Negative Ketones) UA Blood (test code=UA Blood) 10 cells/mcL Negative UA Protein (test code=UA NEG Negative Protein) UA Urobilinogen (test code=UA 1 mg/dL >0.2 Urobilinogen) UA Nitrite (test code=UA NEG Negative Nitrite) UA Leuk Est (test code=UA Leuk 100 cells/mcL Negative Est) UA Micro Ind? (test code=UA Indicated Not Indicated Result created by rule Micro Ind?) GL_SJM_UA_MICRO_IND Complete Blood Count with [id number] 02:15:37 Test Item Value Reference Range Comments WBC (test code=WBC) 16.8 x10 4.4-10.5 RBC (test code=RBC) 4.66 x10 3.75-5.20 Hgb (test code=Hgb) 13.9 g/dL 12.2-14.8 Hct (test code=Hct) 42.1 % 36.5-44.4 MCV (test code=MCV) 90.30 fL 80.00-100.00 MCHC (test code=MCHC) 33.00 g/dL 32.00-37.50 RDW CV (test code=RDW CV) 13.7 % 11.5-14.5 MCH (test code=MCH) 29.8 pg 27.0-32.5 Platelets (test 323.0 x10 140.0-440.0 code=Platelets) MPV (test code=MPV) 10.9 fL Slide Review (test code=Slide Auto Auto Result created by Review) GL_SJM_SLIDE_REV_AUTO GL_SJM_XN_RFLX nRBC (test code=nRBC) 0 NRBC Abs (test code=NRBC Abs) 0.00 x10 Pos Diff XN (test code=Pos A Diff XN) IPF (test code=IPF) 0 % Automated [id number] 02:15:37 Test Item Value Reference Range Comments Neutro Auto (test code=Neutro Auto) 55.8 % 36.0-70.0 Lymph Auto (test code=Lymph Auto) 35.3 % 12.0-44.0 Ellis Auto (test code=Ellis Auto) 6.8 % 0.0-11.0 Eos, Auto (test code=Eos, Auto) 1.5 % 0.0-7.0 Basophil Auto (test code=Basophil Auto) 0.4 % 0.0-2.0 Neutro Absolute (test code=Neutro Absolute) 9.4 x10 1.6-7.4 Lymph Absolute (test code=Lymph Absolute) 5.93 x10 .50-4.60 Ellis Absolute (test code=Ellis Absolute) 1.15 x10 .00-1.20 Eos Absolute (test code=Eos Absolute) 0.25 x10 0.00-0.74 Baso Absolute (test code=Baso Absolute) 0.07 x10 0.00-0.21 IG [id number] 02:15:37 Test Item Value Reference Range Comments IG (test code=IG) 0.2 % 0.0-5.0 IG Abs (test code=IG Abs) 0 x10 UA RFLX MICR CULT IF [id number] 16:49:00 Test Item Value Reference Range Comments UA COLOR (test code=COLU) YELLOW discript YEL/STRAW UA APPEARANCE (test code=APPU) CLEAR discript CLEAR UA GLUCOSE DIPSTICK (test code=DGLUU) NEGATIVE mg/dL NEG UA BILIRUBIN DIPSTICK (test code=BILU) 1+ mg/dL NEG UA KETONE DIPSTICK (test code=KETU) TRACE mg/dL NEG UA SPECIFIC GRAVITY (test code=SGU) >=1.030 SG 1.005-1.030 UA BLOOD DIPSTICK (test code=JORGE) NEGATIVE mg/DL NEG UA PH DIPSTICK (test code=COURTNEY) 6.0 pH UNITS 5.0-7.0 UA PROTEIN DIPSTICK (test code=PROU) TRACE mg/dL NEG UA UROBILINIOGEN DIPSTICK (test 0.2 mg/dL <2.0 code=URO) UA NITRITE DIPSTICK (test code=JU) NEGATIVE SCREEN NEG UA LEUKOCYTE ESTERASE DIPSTICK (test NEGATIVE Leuk/mcL NEGATIVE code=LEUU) UA WBC (test code=WBCU) 0-1 #WBC/HPF 0-3 UA RBC (test code=RBCU) 3-5 #RBC/HPF 0-3 UA BACTERIA (test code=BACU) OCCASIONAL /HPF NONE-TRACE UA SQUAMOUS CELLS (test code=SQU) 2+ /HPF NONE UA MUCUS (test code=MUCU) 2+ /LPF NONE SEEN UA CULTURE NEEDED? (test code=UACULT) NO, WBC<10 Criteria Culture CHK SOURCE OF URINE: CLEAN CATCHIndication for culture: Dysuria/FrequencyDRUGS OF ABUSE SCREEN [id number] 16:49:00 Test Item Value Reference Range Comments URN COCAINE (test code=COCAURN) POSITIVE SCcutoff <300 NG/ML URN CANNABINOIDS (test code=CANNABURN) NEGATIVE SCcutoff <50 NG/ML URN AMPHETAMINE (test code=AMPHETURN) POSITIVE SCcutoff <1000 NG/ML URN BARBITURATE (test code=BARBITURN) NEGATIVE SCcutoff <200 NG/ML URN BENZODIAZEPINE (test code=BENZOURN) NEGATIVE SCcutoff <200 NG/ML URN OPIATES (test code=OPIATURN) NEGATIVE SCcutoff <2000 NG/ML URN PHENCYCLIDINE (PCP) (test NEGATIVE SCcutoff <25 NG/ML code=PHENCURN) URN METHADONE (test code=METHAURN) NEGATIVE SCcutoff <300 NG/ML SOURCE OF URINE: CLEAN CATCHIndication for culture: Dysuria/ [id number] 16:35:00 Test Item Value Reference Range Comments SALICYLATE (test code=NONA) < 1.7 MG/DL 2.8-20.0 THER BASIC METABOLIC [id number] 16:34:00 Test Item Value Reference Range Comments SODIUM (test code=NA) 139 mmol/L 134-147 POTASSIUM (test code=K) 3.5 mmol/L 3.4-5.0 CHLORIDE (test code=CL) 109 mmol/L 100-108 CARBON DIOXIDE (test code=CO2) 23 mmol/L 21-32 ANION GAP (test code=GAP) 7.0 GAP calc 4.0-15.0 GLUCOSE (test code=GLU) 104 MG/DL 70-110 BLOOD UREA NITROGEN (test code=BUN) 13 MG/DL 7-18 GLOMERULAR FILTRATION RATE (test >=60 max estimate estGFR >60 code=GFR) CREATININE (test code=CREAT) 0.8 MG/DL 0.6-1.0 CALCIUM (test code=CA) 8.5 MG/DL 8.5-10.1 Last Dose Date: 09/17/18 Dose Time: [id number] FUNCTION [id number] 16: 34:00 Test Item Value Reference Range Comments TOTAL PROTEIN (test code=PROT) 7.6 G/DL 6.4-8.2 ALBUMIN (test code=ALB) 3.9 G/DL 3.4-5.0 BILIRUBIN TOTAL (test code=BILT) 2.40 MG/DL 0.2-1.2 BILIRUBIN DIRECT (test code=BILD) 0.40 MG/DL 0.00-0.30 BILIRUBIN INDIRECT (test code=BILIND) 2.00 MG/DL 0.2-1.2 SGOT/AST (test code=AST) 16 Unit/L 15-37 SGPT/ALT (test code=ALT) 28 Unit/L 12-78 ALKALINE PHOSPHATASE TOTAL (test code=ALKP) 93 Unit/L 45-117 Last Dose Date: 09/17/18 Dose Time: [id number] 16:34:00 Test Item Value Reference Range Comments ACETAMINOPHEN (test code=ACET) < 2.0 mcG/ML 10.0-30.0 Last Dose Date: 09/17/18 Dose Time: [id number] 16:34:00 Test Item Value Reference Range Comments ALCOHOL (test code=ALC) < 3 MG/DL 0-10 Last Dose Date: 09/17/18 Dose Time: RFLX MICR CULT IF [id number] 16:27:00 Test Item Value Reference Range Comments UA COLOR (test code=COLU) YELLOW discript YEL/STRAW UA APPEARANCE (test code=APPU) CLEAR discript CLEAR UA GLUCOSE DIPSTICK (test code=DGLUU) NEGATIVE mg/dL NEG UA BILIRUBIN DIPSTICK (test code=BILU) 1+ mg/dL NEG UA KETONE DIPSTICK (test code=KETU) TRACE mg/dL NEG UA SPECIFIC GRAVITY (test code=SGU) >=1.030 SG 1.005-1.030 UA BLOOD DIPSTICK (test code=JORGE) NEGATIVE mg/DL NEG UA PH DIPSTICK (test code=COURTNEY) 6.0 pH UNITS 5.0-7.0 UA PROTEIN DIPSTICK (test code=PROU) TRACE mg/dL NEG UA UROBILINIOGEN DIPSTICK (test 0.2 mg/dL <2.0 code=URO) UA NITRITE DIPSTICK (test code=JU) NEGATIVE SCREEN NEG UA LEUKOCYTE ESTERASE DIPSTICK (test NEGATIVE Leuk/mcL NEGATIVE code=LEUU) UA WBC (test code=WBCU) 0-1 #WBC/HPF 0-3 UA RBC (test code=RBCU) 3-5 #RBC/HPF 0-3 UA BACTERIA (test code=BACU) OCCASIONAL /HPF NONE-TRACE UA SQUAMOUS CELLS (test code=SQU) 2+ /HPF NONE UA MUCUS (test code=MUCU) 2+ /LPF NONE SEEN UA CULTURE NEEDED? (test code=UACULT) NO, WBC<10 Criteria Culture CHK SOURCE OF URINE: CLEAN CATCHIndication for culture: Dysuria/FrequencyDRUGS OF ABUSE SCREEN [id number] 16:27:00 Test Item Value Reference Range Comments URN COCAINE (test code=COCAURN) SCcutoff <300 NG/ML URN CANNABINOIDS (test code=CANNABURN) SCcutoff <50 NG/ML URN AMPHETAMINE (test code=AMPHETURN) SCcutoff <1000 NG/ML URN BARBITURATE (test code=BARBITURN) SCcutoff <200 NG/ML URN BENZODIAZEPINE (test code=BENZOURN) SCcutoff <200 NG/ML URN OPIATES (test code=OPIATURN) SCcutoff <2000 NG/ML URN PHENCYCLIDINE (PCP) (test code=PHENCURN) SCcutoff <25 NG/ML URN METHADONE (test code=METHAURN) SCcutoff <300 NG/ML SOURCE OF URINE: CLEAN CATCHIndication for culture: Dysuria/FrequencyBASIC METABOLIC [id number] 16:26:00 Test Item Value Reference Range Comments SODIUM (test code=NA) 139 mmol/L 134-147 POTASSIUM (test code=K) 3.5 mmol/L 3.4-5.0 CHLORIDE (test code=CL) 109 mmol/L 100-108 CARBON DIOXIDE (test code=CO2) 23 mmol/L 21-32 ANION GAP (test code=GAP) 7.0 GAP calc 4.0-15.0 GLUCOSE (test code=GLU) 104 MG/DL 70-110 BLOOD UREA NITROGEN (test code=BUN) 13 MG/DL 7-18 GLOMERULAR FILTRATION RATE (test code=GFR) estGFR >60 CREATININE (test code=CREAT) MG/DL 0.6-1.0 CALCIUM (test code=CA) 8.5 MG/DL 8.5-10.1 Last Dose Date: 09/17/18 Dose Time: 1553HEPATIC FUNCTION [id number] 16: 26:00 Test Item Value Reference Range Comments TOTAL PROTEIN (test code=PROT) G/DL 6.4-8.2 ALBUMIN (test code=ALB) 3.9 G/DL 3.4-5.0 BILIRUBIN TOTAL (test code=BILT) MG/DL 0.2-1.2 BILIRUBIN DIRECT (test code=BILD) MG/DL 0.00-0.30 BILIRUBIN INDIRECT (test code=BILIND) MG/DL 0.2-1.2 SGOT/AST (test code=AST) Unit/L 15-37 SGPT/ALT (test code=ALT) Unit/L 12-78 ALKALINE PHOSPHATASE TOTAL (test code=ALKP) Unit/L 45-117 Last Dose Date: 09/17/18 Dose Time: [id number] 16:26:00 Test Item Value Reference Range Comments ACETAMINOPHEN (test code=ACET) mcG/ML 10.0-30.0 Last Dose Date: 09/17/18 Dose Time: [id number] 16:26:00 Test Item Value Reference Range Comments ALCOHOL (test code=ALC) MG/DL 0-10 Last Dose Date: 09/17/18 Dose Time: [id number] RFLX MICR CULT IF [id number] 16:21:00 Test Item Value Reference Range Comments UA COLOR (test code=COLU) YELLOW discript YEL/STRAW UA APPEARANCE (test code=APPU) CLEAR discript CLEAR UA GLUCOSE DIPSTICK (test code=DGLUU) NEGATIVE mg/dL NEG UA BILIRUBIN DIPSTICK (test code=BILU) 1+ mg/dL NEG UA KETONE DIPSTICK (test code=KETU) TRACE mg/dL NEG UA SPECIFIC GRAVITY (test code=SGU) >=1.030 SG 1.005-1.030 UA BLOOD DIPSTICK (test code=JORGE) NEGATIVE mg/DL NEG UA PH DIPSTICK (test code=COURTNEY) 6.0 pH UNITS 5.0-7.0 UA PROTEIN DIPSTICK (test code=PROU) TRACE mg/dL NEG UA UROBILINIOGEN DIPSTICK (test code=URO) 0.2 mg/dL <2.0 UA NITRITE DIPSTICK (test code=JU) NEGATIVE SCREEN NEG UA LEUKOCYTE ESTERASE DIPSTICK (test NEGATIVE Leuk/mcL NEGATIVE code=LEUU) UA CULTURE NEEDED? (test code=UACULT) Criteria Culture CHK SOURCE OF URINE: CLEAN CATCHIndication for culture: Dysuria/FrequencyDRUGS OF ABUSE SCREEN [id number] 16:21:00 Test Item Value Reference Range Comments URN COCAINE (test code=COCAURN) SCcutoff <300 NG/ML URN CANNABINOIDS (test code=CANNABURN) SCcutoff <50 NG/ML URN AMPHETAMINE (test code=AMPHETURN) SCcutoff <1000 NG/ML URN BARBITURATE (test code=BARBITURN) SCcutoff <200 NG/ML URN BENZODIAZEPINE (test code=BENZOURN) SCcutoff <200 NG/ML URN OPIATES (test code=OPIATURN) SCcutoff <2000 NG/ML URN PHENCYCLIDINE (PCP) (test code=PHENCURN) SCcutoff <25 NG/ML URN METHADONE (test code=METHAURN) SCcutoff <300 NG/ML SOURCE OF URINE: CLEAN CATCHIndication for culture: Dysuria/FrequencyCBC W/ AUTO [id number] 16:14:00 Test Item Value Reference Range Comments WHITE BLOOD CELL (test code=WBC) 10.5 K/mm3 3.5-11.0 RED BLOOD CELL (test code=RBC) 4.49 M/mm3 4.70-6.10 HEMOGLOBIN (test code=HGB) 13.4 G/DL 10.4-14.9 HEMATOCRIT (test code=HCT) 40.0 % 31.5-44.1 MEAN CELL VOLUME (test code=MCV) 89.1 Fl 84.5-98.6 MEAN CELL HGB (test code=MCH) 29.8 pg 27.0-34.2 MEAN CELL HGB CONCETRATION (test code=MCHC) 33.5 G/DL 31.5-34.0 RED CELL DISTRIBUTION WIDTH (test code=RDW) 14.6 SD 11.5-14.5 PLATELET COUNT (test code=PLT) 302.0 K/mm3 150-450 MEAN PLATELET VOLUME (test code=MPV) 10.40 fL 7.0-10.5 NEUTROPHIL % (test code=NT%) 63.3 % 40-76 LYMPHOCYTE % (test code=LY%) 26.7 % 20.5-51.1 MONOCYTE % (test code=MO%) 8.3 % 1.7-9.3 EOSINOPHIL % (test code=EO%) 1.5 % 0.0-6.0 BASOPHIL % (test code=BA%) 0.2 % 0.0-2.0 NEUTROPHIL # (test code=NT#) 6.67 K/mm3 1.8-7.6 LYMPHOCYTE # (test code=LY#) 2.8 K/mm3 0.6-3.2 MONOCYTE # (test code=MO#) 0.9 K/mm3 0.3-1.1 EOSINOPHIL # (test code=EO#) 0.2 K/mm3 0.0-0.4 BASOPHIL # (test code=BA#) 0.0 K/mm3 0.0-0.1 MANUAL DIFF REQUIRED (test code=MDIFF) NO DIFF/SCN CRITERIA BHCG, Urine, [id number] 12:34:00 Test Item Value Reference Range Comments Preg Qual [Ur] (test code=HUHCG) Negative Negative BHCG, Urine, [id number] 12:16:00 Test Item Value Reference Range Comments Preg Qual [Ur] (test code=HUHCG) Negative Negative
--- OUTSIDE RECORDS SUMMARY | 2019-02-22 16:36 | XMS REPORT ---
[...] Status Dosage System Date Date Gabapentin ND [id number] 300 MG Orally Nov 09, Active 1 capsule Once a day 2017 Sertraline HCl ND 58100473427 25 MG Orally Dec 12, Active 1 tablet Once a day 2017 Disulfiram ND 08173397422 250 MG Orally Dec 12, Active 1 tablet Once a day 2018 Wellbutrin XL ND 78038342875 300 MG Orally October 09, Active 1 tablet Once a day 2018 in the morning Results No Known Results Summary Purpose eClinicalWorks Submission
--- OUTSIDE RECORDS SUMMARY | 2019-02-22 16:36 | XMS REPORT ---
[...] Status Dosage System Date Date Gabapentin ND [id number] 100 MG Orally Nov 09, Active 1 capsule Once a day 2017 Wellbutrin XL ND 06977742178 300 MG Orally October 09, Active 1 tablet Once a day 2018 in the morning Results No Known Results Summary Purpose eClinicalWorks Submission
[2019-02-22] MEDS ORDERED: BUPIVACAINE 0.5% PF 10 ML VIAL ONE (17:41)
[2019-02-22] MEDS ORDERED: LIDOCAINE 1% MPF 30 ML VIAL ONE (17:41)
--- NOTE | 2019-02-22 19:08 | EDPHYS ---
Physician Documentation [facility] Name: Latrell Tam Age: 23 yrs Sex: Female : 1995 Arrival Date: 02/22/2019 Time: 16:36 Bed 13 Private MD: None, None ED Physician Randal Mckinnon HPI: 02/22 16:58 This 23 yrs old Female presents to ER via Ambulatory with complaints of Ear jmm Injury. 16:58 The patient presents with an injury, pain. Onset: The symptoms/episode began/occurred jmm acutely, 13 hour(s) ago. Associated signs and symptoms:. This is a 23 year old female with no chronic medical conditions that states her left ear lob tore in her sleep. Patient stretches her ear lobes. . 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 - Social history:: Smoking status: . - Ebola Screening: : Patient denies travel to an Ebola-affected area in the 21 days before illness onset. ROS: 16:58 Constitutional: Negative for fever, chills, and weight loss, Cardiovascular: Negative jmm for chest pain, palpitations, and edema, Respiratory: Negative for shortness of breath, cough, wheezing, and pleuritic chest pain. 16:58 All other systems are negative. Exam: 16:58 Constitutional: This is a well developed, well nourished patient who is awake, alert, jmm and in no acute distress. Head/Face: atraumatic. Eyes: EOMI, no conjunctival erythema appreciated 16:58 Neck: Trachea midline, Supple Cardiovascular: Regular rate and rhythm. No edema appreciated Respiratory: Normal respirations, no respiratory distress appreciated Abdomen/GI: Non distended, soft Back: Normal ROM MS/ Extremity: Moves all extremities, no obvious deformities appreciated, no edema noted to the lower extremities Neuro: Awake and alert, normal gait Psych: Behavior is normal, Mood is normal, Patient is cooperative and pleasant 16:58 ENT: left ear lobe hole is torn, no active bleeding appreciated. 16:58 Skin: torn left ear lobe. Vital Signs: 16:41 BP 108 / 56; Pulse 100; Resp 17; Temp 98.7(TE); Pulse Ox 100% on R/A; Weight 90.72 kg tw2 (R); Height 5 ft. 7 in. (170.18 cm); Pain 5/10; 18:23 BP 111 / 64; Pulse 98; Resp 18 S; Pulse Ox 100% on R/A; ca1 16:41 Body Mass Index 31.32 (90.72 kg, 170.18 cm) tw2 Laceration: 19:06 Wound Repair of 2cm ( 0.8in ) subcutaneous laceration to left ear lobe. Distal jmm neuro/vascular/tendon intact. Anesthesia: Regional Block with 5 mls of 1% lidocaine. Wound prep: Moderate cleansing with betadine by me. Skin closed with 5 5-0 Prolene using simple sutures and sterile technique. Patient tolerated well. MDM: 16:58 Patient medically screened. [facility] 19:06 Data reviewed: vital signs, nurses notes. Counseling: I had a detailed discussion with amor the patient and/or guardian regarding: the historical points, exam findings, and any diagnostic results supporting the discharge/admit diagnosis, the need for outpatient follow up, to return to the emergency department if symptoms worsen or persist or if there are any questions or concerns that arise at home. ED course: Patient given wound infection return precautions. patient understood and agrees with the plan of care. . Administered Medications: 17:54 Drug: Marcaine (0.5 %) 10 ml {Note: infiltrated by PA. Avni} Volume: 10 ml; Route: ca1 Infiltration; 17:54 Drug: Lidocaine (1 %) 20 ml {Note: Infitrated by Avni PACiarra} Volume: 20 ml; Route: ca1 Infiltration; Disposition: 02/22/19 19:08 Discharged to Home. Impression: Ear Lobe laceration. - Condition is Stable. - Discharge Instructions: Facial Laceration. - Prescriptions for Bactrim DS 800- 160 mg Oral Tablet - take 1 tablet by ORAL route every 12 hours for 10 days; 20 tablet. - Medication Reconciliation Form, Thank You Letter, Antibiotic Education, Prescription Opioid Use, Work release form form. - Follow up: Private Physician; When: 2 - 3 days; Reason: Recheck today's complaints, Continuance of care, Re-evaluation by your physician. Addendum: 02/26/2019 06:33 Co-signature as Attending Physician, Randal Mckinnon MD I agree with the assessment and k dr plan of care. Signatures: Randal Mckinnon MD MD [facility] Avni Siddiqui PA PA jmm Wise, Tara, RN RN tw2 AcShyla sorto RN RN ca1 Corrections: (The following items were deleted from the chart) 02/22 19:17 19:08 02/22/2019 19:08 Discharged to Home. Impression: Ear Lobe laceration. Condition ca1 is Stable. Forms are Work release form, Medication Reconciliation Form, Thank You Letter, Antibiotic Education, Prescription Opioid Use. Follow up: Private Physician; When: 2 - 3 days; Reason: Recheck today's complaints, Continuance of care, Re-evaluation by your physician. amor
--- NOTE | 2019-02-22 19:08 | ER ---
Nurse's Notes [facility] Name: Latrell Tam Age: 23 yrs Sex: Female : 1995 Arrival Date: 02/22/2019 Time: 16:36 Bed 13 Private MD: None, None Diagnosis: Ear Lobe laceration Presentation: 02/22 16:40 Presenting complaint: Patient states: my ear lobe ripped last night, my LEFT ear lobe, tw2 i had them stretched yesterday and i guess i pulled it in my sleep. Transition of care: patient was not received from another setting of care. Onset of symptoms was February 22, 2019. Risk Assessment: Do you want to hurt yourself or someone else? Patient reports no desire to harm self or others. Initial Sepsis Screen: Does the patient meet any 2 criteria? No. Patient's initial sepsis screen is negative. Does the patient have a suspected source of infection? No. Patient's initial sepsis screen is negative. Care prior to arrival: None. 16:40 Method Of Arrival: Ambulatory tw2 16:40 Acuity: MAI 4 tw2 Triage Assessment: 16:42 General: Appears in no apparent distress. Behavior is calm, cooperative, appropriate tw2 for age. Pain: Complains of pain in left ear lobe. 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 - Social history:: Smoking status: . - Ebola Screening: : Patient denies travel to an Ebola-affected area in the 21 days before illness onset. Screenin:49 Abuse screen: Denies threats or abuse. Nutritional screening: No deficits noted. tw2 Tuberculosis screening: No symptoms or risk factors identified. Fall Risk None identified. Assessment: 17:00 General: Appears in no apparent distress. comfortable, Behavior is calm, cooperative, ca1 appropriate for age. Pain: Complains of pain in left ear lobe Pain currently is 3 out of 10 on a pain scale. Pain began 1 day ago. EENT: earlobe has a big hole/piercing for a tunnel earring. Pt reported to have ripped the lowest part of the earlobe apart, which happened last night. . Derm: Skin is healthy with good turgor, Skin is pink, warm \T\ dry. Musculoskeletal: Circulation, motion, and sensation intact. Capillary refill < 3 seconds. 18:23 Reassessment: Patient appears in no apparent distress at this time. Patient is alert, ca1 oriented x 3, equal unlabored respirations, skin warm/dry/pink. Vital Signs: 16:41 BP 108 / 56; Pulse 100; Resp 17; Temp 98.7(TE); Pulse Ox 100% on R/A; Weight 90.72 kg tw2 (R); Height 5 ft. 7 in. (170.18 cm); Pain 5/10; 18:23 BP 111 / 64; Pulse 98; Resp 18 S; Pulse Ox 100% on R/A; ca1 16:41 Body Mass Index 31.32 (90.72 kg, 170.18 cm) tw2 ED Course: 16:36 Patient arrived in ED. ag5 16:36 None, None is Private Physician. ag5 16:41 Triage completed. tw2 16:41 Arm band placed on. tw2 16:48 Bed in low position. Call light in reach. Adult w/ patient. tw2 16:50 Shyla Aponte, JARVIS is Primary Nurse. ca1 16:57 Avni Siddiqui PA is PHCP. [facility] 16:57 Randal Mckinnon MD is Attending Physician. [facility] 18:23 Patient did not have IV access during this emergency room visit. ca1 19:00 Assist provider with laceration repair on left ear lobe that was 2.5 cm. or less using ca1 sutures. Set up tray. Performed by Avni MURRIETA Patient tolerated well. Administered Medications: 17:54 Drug: Marcaine (0.5 %) 10 ml {Note: infiltrated by PA. Avni} Volume: 10 ml; Route: ca1 Infiltration; 17:54 Drug: Lidocaine (1 %) 20 ml {Note: Infitrated by PA. Avni} Volume: 20 ml; Route: ca1 Infiltration; Outcome: 19:08 Discharge ordered by . [facility] 19:17 Discharged to home ambulatory, with family. ca1 19:17 Condition: stable 19:17 Discharge instructions given to patient, Instructed on discharge instructions, follow up and referral plans. medication usage, wound care, Demonstrated understanding of instructions, follow-up care, medications, Prescriptions given X 1. 19:17 Patient left the ED. ca1 Signatures: Avni Siddiqui PA PA jmm Wise, Tara RN RN tw2 Shyla Aponte RN RN ca1 Tapan Mora ag5
[2019-02-22 19:54] VITALS: TEMP 98.7; O2SAT 100
[2019-02-22 19:55] VITALS: BP 111/64
== END 2019-02-22 19:17 | disposition home or self-care (01) ==
LOC: ER 16:32
PROC: 0HQ3XZZ Repair Left Ear Skin, External Approach (ICD-10-PCS; principal; 2019-02-22)
DX: S01.312A Laceration without foreign body of left ear, initial encounter (principal); X58.XXXA Exposure to other specified factors, initial encounter; Y93.9 Activity, unspecified; Y92.9 Unspecified place or not applicable

== ENCOUNTER 2023-09-23 09:45 | Inpatient (IN) | payer SELFPAY ==
[2023-09-23] MEDS ORDERED: AMPICILLIN/SULBACTAM 3GM/VIAL ONE (10:07)
[2023-09-23] MEDS ORDERED: NA CHLORIDE 0.9% 100 ML ONE (10:07)
[2023-09-23 10:17] LABS: Absolute Basophils 0.1 K/uL (0-0.5); Absolute Lymphocytes (CBC) 3.5 K/uL (0.7-4.9); Absolute Monocytes 0.8 K/uL (0.1-1.3); Absolute Neutrophil 9.3 K/uL (1.8-8.0); Basophils % 0.4 % (0-1.3); Eosinophils % 0.2 % (0-4.4); Hematocrit 41.5 % (36.0-45.0); Hemoglobin 13.9 g/dL (12.0-15.0); Lymphocytes % 25.6 % (15.3-44.8); MCHC 33.4 g/dL (32.0-36.0); MCV 89.9 fL (80-100); Monocytes % 5.9 % (3.3-12.3); Neutrophils % 67.9 % (41.7-73.7); Nucleated Red Blood Cells % 0.1 % (0-0); Platelets 375 thou/uL (152-406); RBC Red Blood Cell Count 4.62 M/uL (3.86-4.86); Red Cell Distribution Width 13.6 % (12.1-15.2)
[2023-09-23 10:40] LABS: ALT/SGPT 19 U/L (13-56); Albumin 3.7 g/dL (3.4-5.0); Albumin/Globulin Ratio 0.9 (1.1-1.8); Alkaline Phosphatase 95 U/L (45-117); Anion Gap 9.6 mEq/L (5.0-15.0); BUN Blood Urea Nitrogen 7 mg/dL (7-18); Bicarbonate 23 mEq/L (21-32); Bilirubin Total 1.9 mg/dL (0.2-1.0); Glomerular Filtration Rate 104 ml/min (=/>90); Glucose Level 137 mg/dL (74-106); Potassium 3.6 mEq/L (3.5-5.1); Protein, Total 7.7 g/dL (6.4-8.2); Sodium Level 136 mEq/L (136-145)
[2023-09-23 10:47] LABS: AST/SGOT < 10 U/L (15-37)
--- NOTE | 2023-09-23 11:08 | RAD REPORT ---
EXAM DESCRIPTION: CT - Soft Tissue Neck W/Contr - 09/23/2023 10:47 am CLINICAL HISTORY: Neck pain and swelling COMPARISON: None. TECHNIQUE: Computed axial tomography of the neck was obtained. 50 cc Isovue 300 was administered in travenously. Coronal and sagittal reconstruction was performed. All CT scans are performed using dose optimization technique as appropriate and may include automated exposure control or mA/KV adjustment according to patient size. FINDINGS: Lucency posterior left mandibular tooth. Lucency mid left mandibular tooth. A 3.5 centimeter abscess left submental region The pharynx, tongue base, larynx and subglottic trachea appear unremarkable The parotid, submandibular and thyroid glands appear unremarkable. Reactive lymph nodes No fluid within the sinuses/mastoids IMPRESSION: Left maxillary and mandibular apical teeth abscesses 3.5 centimeter left submental abscess
[2023-09-23 11:19] LABS: PTT, Activated Partial Thromb 40.3 SECONDS (24.3-36.9); Protime INR 1.19
[2023-09-23] MEDS ORDERED: POTASSIUM CL SA 10 MEQ TAB PO ONE (11:19)
[2023-09-23] MEDS ORDERED: MAGNESIUM SULFATE 1 gm IVPB 1 GM/100 ML BAG IV ONE (11:19)
--- NOTE | 2023-09-23 11:24 | ER ---
Nurse's Notes [facility] Name: Latrell Tam Age: 28 yrs Sex: Female : 1995 Arrival Date: 09/23/2023 Time: 09:45 Bed 20 Private MD: Diagnosis: Cutaneous abscess of neck;Hypokalemia;QTc Prolongation Presentation: 09/22 09:59 Chief complaint: Left sided neck swelling, redness, and pain x 3 days. Coronavirus hb screen: At this time, the client does not indicate any symptoms associated with coronavirus-19. Ebola Screen: No symptoms or risks identified at this time. Initial Sepsis Screen: Does the patient meet any 2 criteria? HR > 90 bpm. Yes Does the patient have a suspected source of infection? No. Patient's initial sepsis screen is negative. Risk Assessment: Do you want to hurt yourself or someone else? Patient reports no desire to harm self or others. Onset of symptoms was September 20, 2023. 09:59 Method Of Arrival: Ambulatory hb 09:59 Acuity: MAI 3 hb Triage Assessment: 10:04 General: Appears in no apparent distress. Behavior is calm, cooperative. Pain: Pain hb currently is 5 out of 10 on a pain scale. EENT: left sided neck redness and golf ball sized swelling. Reports left sided neck pain, redness, and swelling. Neuro: Level of Consciousness is awake, alert, obeys commands, Oriented to person, place, time, situation. Cardiovascular: Patient's skin is warm and dry. Respiratory: Respiratory effort is even, unlabored, Respiratory pattern is regular, symmetrical. 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 - Infectious Disease History:: Denies. - Social history:: Smoking status: Patient denies any tobacco usage or history of. Screenin:11 [facility] ED Fall Risk Assessment (Adult) History of falling in the last 3 months, mb9 including since admission No falls in past 3 months (0 pts) Confusion or Disorientation No (0 pts) Intoxicated or Sedated No (0 pts) Impaired Gait No (0 pts) Mobility Assist Device Used No (0 pt) Altered Elimination No (0 pt) Score/Fall Risk Level 0 - 2 = Low Risk Oriented to surroundings, Maintained a safe environment, Educated pt \T\ family on fall prevention, incl call for assistance when getting out of bed. Abuse screen: Denies threats or abuse. Nutritional screening: No deficits noted. Tuberculosis screening: No symptoms or risk factors identified. Assessment: 10:07 General: See triage assessment. . hb 11:00 Reassessment: No changes from previously documented assessment. Patient and/or family mb9 updated on plan of care and expected duration. Pain level reassessed. Patient is alert, oriented x 3, equal unlabored respirations, skin warm/dry/pink. 12:30 Reassessment: No changes from previously documented assessment. Patient and/or family mb9 updated on plan of care and expected duration. Pain level reassessed. Patient is alert, oriented x 3, equal unlabored respirations, skin warm/dry/pink. Vital Signs: 09:59 BP 132 / 91; Pulse 93; Resp 15; Temp 98.1(O); Pulse Ox 99% on R/A; Weight 82.55 kg; hb Height 5 ft. 7 in. ; Pain 5/10; 11:08 BP 115 / 88; Pulse 74; Resp 18; Pulse Ox 100% on R/A; mb9 12:00 BP 118 / 92; Pulse 94; Resp 18; Pulse Ox 98% on R/A; me1 12:57 BP 119 / 96; Pulse 74; Resp 18; Pulse Ox 98% on R/A; mb9 14:00 BP 108 / 6; Pulse 102; Resp 16; Pulse Ox 98% on R/A; me1 15:00 BP 114 / 86; Pulse 96; Resp 16; Pulse Ox 99% on R/A; me1 09:59 Body Mass Index 28.50 (82.55 kg, 170.18 cm) hb 09:59 Pain Scale: Adult hb ED Course: 09:48 Patient arrived in ED. mr 09:48 Eduardo Russo MD is Attending Physician. ec2 10:04 Triage completed. hb 10:05 Initial lab(s) drawn, by ct, sent to lab. Inserted saline lock: 20 gauge in right mb9 antecubital area, using aseptic technique. 10:07 Arm band placed on. hb 10:08 Patient has correct armband on for positive identification. Placed in gown. Bed in low aw1 position. Call light in reach. Side rails up X 1. Adult w/ patient. Door closed. Noise minimized. Warm blanket given. Pillow given. 10:48 CT Soft Tissue Neck W/contr In Process Unspecified. EDMS 10:58 Repeat lab(s) drawn. by me, sent to lab. First set of blood cultures drawn by me, aw1 Second set of blood cultures drawn by me. 11:03 Blood Culture Adult (2) Sent. aw1 11:03 Lactate w/ 2H reflex if indic. Sent. aw1 11:03 Protime (+inr) Sent. aw1 11:03 Ptt, Activated Sent. aw1 11:08 Cande Boone, RN is Primary Nurse. mb9 11:08 EKG done, by ED staff, reviewed by Cande Boone RN. mb9 11:08 No provider procedures requiring assistance completed. mb9 11:23 Milton Bellamy is Hospitalizing Provider. ec2 12:58 Report given to JARVIS Graham. mb9 15:06 Patient admitted, IV remains in place. me1 15:06 Provided Education on: POC. Verbalized understanding. . me1 Administered Medications: 10:11 Drug: Ampicillin-Sulbactam Sodium IVPB 3 grams IVPB once over 30 mins; (mix in 100 mL mb9 NS) Route: IVPB; Infused Over: 30 mins; Site: right antecubital; 11:09 Follow up: Response: No adverse reaction; IV Status: Completed infusion mb9 11:25 Drug: Potassium Chloride PO 40 mEq PO once Route: PO; hb 12:58 Follow up: Response: No adverse reaction mb9 11:25 Drug: Magnesium Sulfate IVPB 1 grams IVPB once over 1 hrs Route: IVPB; Infused Over: 1 hb hrs; Site: right antecubital; 12:58 Follow up: Response: No adverse reaction; IV Status: Completed infusion mb9 Medication: 10:11 VIS not applicable for this client. mb9 Outcome: 11:23 Decision to Hospitalize by Provider. ec2 15:02 Admitted to Med/surg accompanied by tech, via wheelchair, room 220, with chart, Report me1 called to faxed report, receipt confirmed with Raphael. 15:06 Condition: stable me1 15:06 Instructed on the need for admit, 15:32 Patient left the ED. me1 Signatures: Dispatcher [employer] Cande Mi, Reg Reg mr ArguetaKathia, JARVIS CONLEY Cande Boone RN RN mb9 Jessica Hadley 1 Gladys Bates RN RN ct1 Eduardo Russo MD MD 2
--- NOTE | 2023-09-23 11:24 | EDPHYS ---
Physician Documentation [facility] Name: Latrell Tam Age: 28 yrs Sex: Female : 1995 Arrival Date: 09/23/2023 Time: 09:45 Bed 20 Private MD: ED Physician Eduardo Russo HPI: 09/22 10:03 This 28 yrs old Female presents to ER via Unassigned with complaints of L ec2 neck swelling. 10:03 Patient arrives today for evaluation of swelling to the left neck. Patient reports that ec2 she has been having progressive swelling over the past 3 days. Patient reports no fevers or chills, no nausea or vomiting, no weight loss or night sweats. Denies any previous thyroid issues. Reports just general poor dentition. No previous HEENT surgeries. 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 - Infectious Disease History:: Denies. - Social history:: Smoking status: Patient denies any tobacco usage or history of. ROS: 10:03 Constitutional: as per hpi ec2 Exam: 10:03 Constitutional: GEN: NAD Head: atraumatic Eyes: EOMI Ears: External ears are normal. ec2 Mouth: No trismus, no malocclusion. Neck: Left anterior neck with firm induration noted, erythema overlying noted. No fluctuance, no discharge noted. CV: regular rate LUNGS: no respiratory distress ABD: non-distended SKIN: no evidence of rashes MSK: no evidence of trauma NEURO: moves all extremities equally Vital Signs: 09:59 BP 132 / 91; Pulse 93; Resp 15; Temp 98.1(O); Pulse Ox 99% on R/A; Weight 82.55 kg; hb Height 5 ft. 7 in. ; Pain 5/10; 11:08 BP 115 / 88; Pulse 74; Resp 18; Pulse Ox 100% on R/A; mb9 12:00 BP 118 / 92; Pulse 94; Resp 18; Pulse Ox 98% on R/A; me1 12:57 BP 119 / 96; Pulse 74; Resp 18; Pulse Ox 98% on R/A; mb9 14:00 BP 108 / 6; Pulse 102; Resp 16; Pulse Ox 98% on R/A; me1 15:00 BP 114 / 86; Pulse 96; Resp 16; Pulse Ox 99% on R/A; me1 09:59 Body Mass Index 28.50 (82.55 kg, 170.18 cm) hb 09:59 Pain Scale: Adult hb MDM: 09:53 Patient medically screened. ec2 10:05 Data reviewed: vital signs. ED course: BiliaryPatient arrives today for evaluation of ec2 left anterior neck swelling. Examination remarkable for HEENT findings as noted above. Will obtain lab work, CT imaging. Differential diagnosis include abscess, cancer, cellulitis with induration.. 10:35 ED course: Lab work shows leukocytosis at 13.7. Patient meets SIRS criteria, possible ec2 abscess however not obviously identified. Will add on blood cultures, lactic acid as well. . 11:04 ED course: Metabolic profile shows appropriate electrolytes and renal function. Thyroid ec2 studies are unremarkable. Pending urine studies, CT imaging. . 11:10 ED course: EKG independently reviewed and interpreted by me, shows normal sinus rhythm, ec2 rate of 79, no acute ST segment elevations, intervals are pertinent for QTc prolongation. Patient with potassium of 3.6, will supplement potassium and also give the patient magnesium.. 11:11 ED course: CT of the neck shows 3.5 cm left submental abscess. Will discuss case with ec2 ENT. . 11:23 ED course: I discussed case with Dr. Ramirez, ENT, recommends keeping the patient n.p.o. ec2 after midnight with plans for operative intervention tomorrow. Discussed case with hospitalist, pending admission.. 11:23 ED course: MDM: Differential diagnosis as documented above in ED course; All lab tests ec2 ordered and reviewed as documented above; Independent interpretation of tests: EKG as above; Discuss inpatient hospitalization: Yes; I discussed the case with: HospitalistROXANNA . 09/22 10:03 Order name: CBC with Diff; Complete Time: 10:30 ec2 09/22 10:03 Order name: CMP; Complete Time: 11:04 ec2 09/22 10:03 Order name: Test, Urine ec2 09/22 10:03 Order name: TSH; Complete Time: 11:04 2 09/22 10:03 Order name: T4 Free; Complete Time: 11:04 2 09/22 10:31 Order name: Blood Culture Adult (2) 09/22 10:31 Order name: Lactate w/ 2H reflex if indic. 09/22 10:31 Order name: Protime (+inr); Complete Time: 11:24 2 09/22 10:31 Order name: Ptt, Activated; Complete Time: 11:24 2 09/22 10:03 Order name: CT Soft Tissue Neck W/contr; Complete Time: 11:09 ec2 09/22 10:31 Order name: EKG; Complete Time: 10:31 2 09/22 10:03 Order name: IV; Complete Time: 10:05 2 09/22 10:31 Order name: Accucheck; Complete Time: 10:43 2 09/22 10:31 Order name: Cardiac monitoring; Complete Time: 10:43 2 09/22 10:31 Order name: EKG - Nurse/Tech; Complete Time: 11:09 2 09/22 10:31 Order name: IV Saline Lock - Large Bore; Complete Time: 10:43 09/22 10:31 Order name: Labs collected and sent; Complete Time: 10:43 09/22 10:31 Order name: O2 Per Protocol; Complete Time: 10:43 09/22 10:31 Order name: O2 Sat Monitoring; Complete Time: 10:43 09/22 10:31 Order name: Vital Signs; Complete Time: 10:43 ec2 Administered Medications: 10:11 Drug: Ampicillin-Sulbactam Sodium IVPB 3 grams IVPB once over 30 mins; (mix in 100 mL mb9 NS) Route: IVPB; Infused Over: 30 mins; Site: right antecubital; 11:09 Follow up: Response: No adverse reaction; IV Status: Completed infusion mb9 11:25 Drug: Potassium Chloride PO 40 mEq PO once Route: PO; hb 12:58 Follow up: Response: No adverse reaction mb9 11:25 Drug: Magnesium Sulfate IVPB 1 grams IVPB once over 1 hrs Route: IVPB; Infused Over: 1 hb hrs; Site: right antecubital; 12:58 Follow up: Response: No adverse reaction; IV Status: Completed infusion mb9 Disposition Summary: 09/23/23 11:23 Hospitalization Ordered Notes: Hospitalization Status: Inpatient Admission ec2 Provider: Milton Bellamy ec2 Location: Telemetry/MedSurg (Inpatient) ec2 Condition: Stable ec2 Problem: new ec2 Symptoms: are unchanged ec2 Bed/Room Type: Standard ec2 Room Assignment: 220(09/23/23 14:45) bc6 Diagnosis - Cutaneous abscess of neck ec2 - Hypokalemia ec2 - QTc Prolongation ec2 Forms: - Medication Reconciliation Form ec2 - SBAR form ec2 - Leadership Thank You Letter ec2 Critical care time excluding procedures: 11:27 Critical care time: Bedside Care: 30 minutes, Consultation: 5 minutes. Total time: 35 ec2 minutes Signatures: Dispatcher [employer] EDKathia Littlejohn RN RN Cande Boone RN RN mb9 Tianna Estes 6 Eduardo Russo MD MD ec2 Corrections: (The following items were deleted from the chart) 10:03 10:03 CBC+H.LAB.BRZ ordered. EDMS EDMS 10:03 10:03 COMPREHENSIVE METABOLIC PANEL+C.LAB.BRZ ordered. EDMS EDMS 10:03 10:03 Test, Urine+UC.LAB.BRZ ordered. EDMS EDMS 10:03 10:03 THYROID STIMULAT HORMONE+C.LAB.BRZ ordered. EDMS EDMS 10:03 10:03 T4 FREE+C.LAB.BRZ ordered. EDMS EDMS 14:45 11:23 ec2 bc6
--- NOTE | 2023-09-23 12:12 | P.HP ---
Certification for Inpatient Patient admitted to: Inpatient With expected LOS: >2 Midnights Patient will require the following post-hospital care: None Practitioner: I am a practitioner with admitting privileges, knowledge of patient current condition, hospital course, and medical plan of care. Services: Services provided to patient in accordance with Admission requirements found in Title 42 Section 412.3 of the Code of Federal Regulations Patient History Date of Service: 09/23/23 Reason for admission: Sepsis secondary to submental abscess History of Present Illness: Latrell Tam is a 28-year-old female with no significant past medical history who presents to the ED with chief complaint of swelling of left neck that has progressively worsened in 3 days. She reports having the same issue multiple times due to a cracked tooth. She reports no fever chills, nausea vomiting, or night sweats. Initial vitals BP 132 / 91; Pulse 93; Resp 15; Temp 98.1(O); Pulse Ox 99% on R/A. Laboratory evaluation WBC 13.7 otherwise unremarkable, test pending. CT soft neck with contrast reports "Left maxillary and mandibular apical teeth abscesses, 3.5 centimeter left submental abscess" Latrell will be admitted to hospitalist service for further evaluation and treatment. Dr. Lazo consulted. Allergies No Known Allergies Allergy (Unverified 04/14/17 09:07) Home Medications: NK [No Home Meds] 09/23/23 - Past Medical/Surgical History -: Tooth abscess -: submental swelling Past Surgical History: Patient denies surgical history - Social History Smoking Status: Never smoker Alcohol use: Yes CD- Drugs: No Caffeine use: Yes Review of Systems ENT: Other (Submental swelling and pain) Physical Examination - Physical Exam General: Alert, In no apparent distress, Oriented x3 Neck: Supple, 2+ carotid pulse no bruit, Other (Left submental swelling and erythema) Respiratory: Clear to auscultation bilaterally, Normal air movement Cardiovascular: Normal pulses, Regular rate/rhythm, Normal S1 S2 Gastrointestinal: Normal bowel sounds, Soft and benign, Distended (Obese) Musculoskeletal: Other (Left submental swelling and erythema) Integumentary: No rashes Neurological: Normal speech, Normal tone - Studies Laboratory Data (last 24 hrs) 09/23/23 09/23/23 09/23/23 10:58 10:05 10:05 WBC 13.70 H Hgb 13.9 Hct 41.5 Plt Count 375 PT 13.0 H INR 1.19 APTT 40.3 H Sodium 136 Potassium 3.6 BUN 7 Creatinine 0.79 Glucose 137 H Total Bilirubin 1.9 H AST < 10 L ALT 19 Alkaline Phosphatase 95 Assessment and Plan - Plan Assessment and plan Sepsis secondary to left submental abscess Left maxillary and mandibular apical teeth abscesses Leukocytosis -Sepsis criteria WBC 13.7, heart rate 93, and submental abscess -CT soft neck with contrast reports "Left maxillary and mandibular apical teeth abscesses, 3.5 centimeter left submental abscess" -Unasyn started in the ED, will continue on the floor -Gentle IV fluids -Dr. Lazo consulted -N.p.o. after midnight -Follow blood cultures - test pending DVT PPx SCDs Full code LOS 2 days Discharge Plan: Home Plan to discharge in: 48 Hours - Advance Directives Does patient have a Living Will: No Does patient have a Durable POA for Healthcare: No
[2023-09-23] MEDS ORDERED: MORPHINE 2 MG/ML SYR ONE (14:59)
[2023-09-23] MEDS: MORPHINE 4 MG/ML SYR IV PRN (15:01)
[2023-09-23] MEDS: NA CHLORIDE 0.9% 1,000 ML IV SCH (15:55)
[2023-09-23 16:26] VITALS: BMI 28.5
[2023-09-23] MEDS: AMPICILLIN/SULBACT 3 GM in NA CHLORIDE 0.9% 100 ML IVPB SCH (17:16)
[2023-09-23] MEDS: HYDROCODONE/APAP 7.5/325 MG TAB PO PRN (23:33)
[2023-09-24 01:29] LABS: Specific Gravity 1.017 (1.005-1.030)
[2023-09-24 03:13] LABS: Absolute Basophils 0.1 K/uL (0-0.5); Absolute Eosinophils 0.1 K/uL (0-0.5); Absolute Monocytes 1.1 K/uL (0.1-1.3); Absolute Neutrophil 8.9 K/uL (1.8-8.0); Basophils % 0.4 % (0-1.3); Eosinophils % 0.9 % (0-4.4); Hematocrit 39.2 % (36.0-45.0); Hemoglobin 13.2 g/dL (12.0-15.0); Lymphocytes % 32.8 % (15.3-44.8); MCH 30.5 pg (27.0-35.0); MCHC 33.6 g/dL (32.0-36.0); MCV 90.7 fL (80-100); MPV 8.1 fL (7.6-11.3); Monocytes % 7.5 % (3.3-12.3); Neutrophils % 58.4 % (41.7-73.7); Nucleated Red Blood Cells % 0.1 % (0-0); Platelets 356 thou/uL (152-406); RBC Red Blood Cell Count 4.32 M/uL (3.86-4.86); Red Cell Distribution Width 13.5 % (12.1-15.2)
[2023-09-24 03:25] LABS: Anion Gap 8.9 mEq/L (5.0-15.0); Phosphorus 3.7 mg/dL (2.5-4.9)
[2023-09-24 03:27] LABS: Magnesium 2.3 mg/dL (1.6-2.4); Potassium 3.9 mEq/L (3.5-5.1)
[2023-09-24] MEDS: HYDROMORPHONE HCL 0.5 MG/0.5 ML INJ IV ONE (05:43)
[2023-09-24] MEDS: KCL 20 MEQ/100 mL IVPB 20 MEQ/100 ML BAG IV ONE (05:43)
[2023-09-24] MEDS: Ringers Lactate 1,000 ML IV ONE (09:30)
[2023-09-24] MEDS ORDERED: MIDAZOLAM HCL 2 MG/2 ML INJ ONE (09:59)
[2023-09-24] MEDS ORDERED: ROCURONIUM 50 MG/5 ML VIAL IV ONE (09:59)
[2023-09-24] MEDS ORDERED: FENTANYL CITR 100 MCG/2 ML ONE (09:59)
[2023-09-24] MEDS ORDERED: propofoL 200 MG/20 ML VIAL IV ONE (09:59)
[2023-09-24] MEDS ORDERED: LIDOCAINE 2% MPF 5 ML VIAL ONE (10:00)
[2023-09-24] MEDS ORDERED: dexAMETHasone 4 MG/ML VIAL ONE (10:00)
[2023-09-24] MEDS ORDERED: ONDANSETRON 4 MG/2 ML VIAL ONE (10:00)
[2023-09-24] MEDS ORDERED: KETOROLAC 30 MG/ML INJ ONE (10:00)
--- NOTE | 2023-09-24 10:31 | CON ---
Date of Consultation: 09/23/2023 Chief Complaint: Left neck swelling. History Of Present Illness: The patient is a 28-year-old female who presented acutely to the emergen cy room for enlarged left neck swelling. The patient states that she does have a broken tooth locate d in the lower mandible and she believes the tooth got infected and caused an infection that resulted in acute left upper neck swelling. The patient presents to the emergency room with significant pain and swelling despite oral antibiotics and treatment in outpatient setting. She also has moderate di fficulty in swallowing and painful swallowing. She denies shortness of breath, chest pain, fever. N o other ENT complaints today. Past Medical History: None. Past Surgical History: 3 right eye surgeries for retinal detachment. Medications: None. Allergies: NONE. Social History: Denies alcohol, tobacco, or illicit drugs. Review of Systems: Head: Negative for headache. Constitutional: Negative for lethargy or fever. Ears: Negative for otorrhea, hearing loss. Nose: Negative for nasal congestion, rhinorrhea. Oral Cavity: Negative for sore throat. Positive for dysphagia and odynophagia. Neck: Positive for left upper neck swelling and pain. Lymph Node: Negative for lymph node enlargement. Physical Examination: Vital Signs: Stable. General: The patient is awake, alert, and oriented to person, place, and time. Eyes: PERRLA/EOMI. Head: Atraumatic, normocephalic. Ears: Deferred. Nose: Moist intranasal mucosa. Midline septum. No exudate. Oral Cavity: Adequate jaw distraction with clear intact posterior oropharynx. Midline uvula. No ob struction. Mild left floor of mouth swelling. Neck: Positive for moderate swelling and tenderness to palpation and epidermal erythema located in t he left level 1 neck. Fluctuance is palpated. Diagnostic Data: CT scan of soft tissue neck with contrast demonstrates a large greater than 3 cm le ft submental fluid collection/abscess. Diagnoses: 1.Acute left upper neck abscess. 2.Dental caries. Recommendations: 1.Start IV antibiotics, Unasyn was started in the emergency room. We will continue. 2.Plan is to take her to the operating room for incision and drainage of left upper neck abscess und er sedation. 3.Recommend packing change in 2 days in the outpatient setting and to continue oral antibiotics in t outpatient setting. DEAN/GRISELDA Voice ID: [id number] Report ID: [id number]
[2023-09-24] MEDS ORDERED: GLYCOPYRROLATE 0.2 MG/ML SYR ONE (10:40)
[2023-09-24] MEDS ORDERED: NEOSTIGMINE 1 MG/ML -10 ML VIAL ONE (10:40)
[2023-09-24] MEDS: LIDOCAINE HCL/EPINEPHRINE 20 ML MDV ONE (10:46)
[2023-09-24 11:50] VITALS: O2SAT 98
[2023-09-24 13:03] VITALS: BP 102/62; TEMP 96.2
--- NOTE | 2023-09-24 13:52 | P.DS ---
Admission Date: 09/23/23 Discharge Date: 09/24/23 Disposition: ROUTINE DISCHARGE Discharge Condition: FAIR Reason for Admission: Sepsis secondary to submental abscess - Problems (1) Submandibular abscess Current Visit: Yes Status: Acute Brief History of Present Illness: 28-year-old female with no significant past medical history presented to the ED with chief complaint of swelling of left neck that has progressively worsened in 3 days. She reports having the same issue multiple times due to a cracked tooth. She reports no fever chills, nausea vomiting, or night sweats. Initial vitals BP 132 / 91; Pulse 93; Resp 15; Temp 98.1(O); Pulse Ox 99% on R/A. Laboratory evaluation WBC 13.7 otherwise unremarkable, test pending. CT soft neck with contrast reports "Left maxillary and mandibular apical teeth abscesses, 3.5 centimeter left submental abscess" ENT Dr. Lazo was consulted and patient was admitted for further management. Hospital Course: Patient was admitted to the medical floor, treated with IV Unasyn. She was evaluated by ENT Dr. Lazo who performed I&D. Patient deemed stable for discharge per Dr. Lazo. She is discharged with oral Augmentin and analgesics. She is informed to follow-up with Dr. Lazo within 2 days for wound check. Vital Signs/Physical Exam: Temp Pulse Resp BP Pulse Ox 96.2 F L 62 16 102/62 99 09/24/23 12:00 09/24/23 12:00 09/24/23 12:00 09/24/23 12:00 09/24/23 12:00 General: Alert, In no apparent distress, Oriented x3 HEENT: Mucous membr. moist/pink Neck: Supple, JVD not distended Respiratory: Clear to auscultation bilaterally, Normal air movement Cardiovascular: No edema, Regular rate/rhythm, Normal S1 S2 Gastrointestinal: Normal bowel sounds, Soft and benign, Non-distended, No tenderness Integumentary: No cyanosis Neurological: Normal strength at 5/5 x4 extr Laboratory Data at Discharge: WBC 15.30 thou/uL (4.3-10.9) H 09/24/23 02:31 Hgb 13.2 g/dL (12.0-15.0) 09/24/23 02:31 Hct 39.2 % (36.0-45.0) 09/24/23 02:31 Plt Count 356 thou/uL (152-406) 09/24/23 02:31 PT 13.0 SECONDS (9.5-12.5) H 09/23/23 10:58 INR 1.19 09/23/23 10:58 APTT 40.3 SECONDS (24.3-36.9) H 09/23/23 10:58 Sodium 139 mEq/L (136-145) 09/24/23 02:31 Potassium 3.9 mEq/L (3.5-5.1) 09/24/23 02:31 BUN 7 mg/dL (7-18) 09/24/23 02:31 Creatinine 0.73 mg/dL (0.55-1.02) 09/24/23 02:31 Glucose 83 mg/dL (74-106) 09/24/23 02:31 Phosphorus 3.7 mg/dL (2.5-4.9) 09/24/23 02:31 Magnesium 2.3 mg/dL (1.6-2.4) 09/24/23 02:31 Total Bilirubin 1.9 mg/dL (0.2-1.0) H 09/23/23 10:05 AST < 10 U/L (15-37) L 09/23/23 10:05 ALT 19 U/L (13-56) 09/23/23 10:05 Alkaline Phosphatase 95 U/L (45-117) 09/23/23 10:05 Home Medications: Amox/Clavulanate [Augmentin 875-125 Tab] 1 each PO BID #20 tab 09/24/23 Hydrocodone 7.5/APAP 325 [[place] 7.5/325 mg*] 1 tab PO Q4H PRN #12 tab 09/24/23 Ibuprofen 400 mg PO TID PRN #30 tab 09/24/23 New Medications: Amox/Clavulanate [Augmentin 875-125 Tab] 1 each PO BID #20 tab Ibuprofen 400 mg PO TID PRN #30 tab PRN Reason: PAIN Hydrocodone 7.5/APAP 325 [[place] 7.5/325 mg*] 1 tab PO Q4H PRN #12 tab PRN Reason: Pain Scale 8-10 (Severe) Diet: Regular Activity: Ad javed Followup: Talia Lazo, DO [ACTIVE - CAN ADMIT] - (Within 2 days) NONE,NONE [Primary Care Provider] - Time spent managing pt's care (in minutes): 26
--- NOTE | 2023-09-25 07:59 | OP ---
Date of Procedure: 09/24/2023 Surgeon: PATRICIO STALEY Preoperative Diagnosis: Left upper neck abscess. Postoperative Diagnosis: Left upper neck abscess. Procedures: Incision and drainage of left upper neck mass under general sedation. Anesthesia: General endotracheal anesthesia was administered. I also infiltrated approximately 10 m L of 1% lidocaine with 1:100,000 epinephrine at the incision site. Estimated Blood Loss: Less than 5 mL. Specimens: None. Findings: Approximately 3 mL of mucopurulent secretions noted within the left upper neck wound cavit y. Complications: None. Disposition: Stable. The patient tolerated the procedure well. Indication For Procedure: The patient is a pleasant 28-year-old female who presented acutely to the emergency room with a large left upper neck abscess secondary to dental caries. These are indication s to bring the patient to operative suite for the above-mentioned procedure in that her condition has been refractory to IV antibiotics. She understood. All questions were answered. Risks versus bene fits and complications were explained in detail and a consent form was signed, which was placed [facility]. Description Of Procedure: The patient was transferred from the preoperative holding area to the oper ative suite by Department of Anesthesia, placed on the operative table supine, sedated and intubated in normal fashion. I infiltrated approximately 10 mL of 1% lidocaine with 1:100,000 epinephrine at t he incision site and the patient was sterilely prepped and draped. An incision was made over the abscess pocket of the left upper neck utilizing a #15 blade scalpel thr ough the epidermis down to the subdermal tissue plane. Approximately 3 mL of mucopurulent secretion was obtained from the abscess cavity. The wound cavity was then irrigated with sterile saline, follo wed by packing of the wound with half-inch iodoform and then a dressing was placed. She tolerated [facility] procedure well, will be discharged home on oral antibiotics, and will follow up with the dentist in 1 to 2 weeks and will follow up with myself in a couple days for packing change. DEAN/GRISELDA Voice ID: [id number] Report ID: [id number]
--- NOTE | 2023-09-25 14:57 | EKG ---
Test Date: 2023-09-23 Test Time: 11:05:44 Roof Slater: MB MEASUREMENT RESULTS: Intervals: Rate: 79 WY: 148 QRSD: 82 QT: 438 QTc: 502 [place]: P: 51 W[place]: 148 QRS: 60 T: 96 INTERPRETIVE STATEMENTS: Normal sinus rhythm Prolonged QT Abnormal ECG No previous ECG available for comparison Electronically Signed On 09-25-23 14:52:18 CDT by Gerson Kendall
== END 2023-09-24 14:46 | disposition home or self-care (01) | DRG 872 ==
LOC: ER 09:45 → ERHOLD 12:16 → 2ND 15:02
PROVIDERS: ADMIT Internal Medicine; ATTEND Internal Medicine
PROC: 0J950ZZ Drainage of Left Neck Subcutaneous Tissue and Fascia, Open Approach (ICD-10-PCS; principal; 2023-09-24 09:45)
DX: A41.9 Sepsis, unspecified organism (principal); L02.11 Cutaneous abscess of neck; L02.01 Cutaneous abscess of face; E87.6 Hypokalemia; K04.7 Periapical abscess without sinus; M27.2 Inflammatory conditions of jaws; K02.9 Dental caries, unspecified; Z79.899 Other long term (current) drug therapy
CPT/HCPCS: 36415; 70491; 80048; 80053; 81025; 83605; 83735; 84100; 84439; 84443; 85025; 85610; 85730; 87040; 93005; 96365; 96366; 96367; 99285; J0295; J1100; J1170; J2001; J2250; J2270; J2405; J2704; J2710; J3010; J3475; J3480; J7030; J7120; Q9967

== ENCOUNTER 2024-02-16 17:56 | Emergency (ER) | payer SELFPAY ==
--- NOTE | 2024-02-16 18:34 | ER ---
Nurse's Notes [facility] Name: Latrell Tam Age: 28 yrs Sex: Female : 1995 Arrival Date: 02/16/2024 Time: 17:56 Bed IW2 Private MD: Diagnosis: Disorder of teeth and supporting structures, unspecified Presentation: 02/15 18:25 Chief complaint: Patient states: abscessed tooth on left upper jaw. Coronavirus screen: iw At this time, the client does not indicate any symptoms associated with coronavirus-19. Ebola Screen: No symptoms or risks identified at this time. Initial Sepsis Screen: Does the patient meet any 2 criteria? No. Patient's initial sepsis screen is negative. Does the patient have a suspected source of infection? No. Patient's initial sepsis screen is negative. 18:25 Method Of Arrival: Ambulatory iw 18:27 Risk Assessment: Do you want to hurt yourself or someone else? Patient reports no iw desire to harm self or others. 18:27 Acuity: MAI 4 iw Historical: - Allergies: 18:26 No Known Allergies; iw - Home Meds: 18:26 None [Active]; iw - PMHx: 18:26 None; iw - Immunization history:: Adult Immunizations not up to date. - Infectious Disease History:: Denies. - Social history:: Smoking status: Reported history of juuling and/or vaping. Screenin:05 [facility] ED Fall Risk Assessment (Adult) History of falling in the last 3 months, lg3 including since admission No falls in past 3 months (0 pts) Confusion or Disorientation No (0 pts) Intoxicated or Sedated No (0 pts) Impaired Gait No (0 pts) Mobility Assist Device Used No (0 pt) Altered Elimination No (0 pt) Score/Fall Risk Level 0 - 2 = Low Risk Oriented to surroundings, Maintained a safe environment, Educated pt \T\ family on fall prevention, incl call for assistance when getting out of bed, Assessed \T\ reinforced patient's understanding of fall precautions. Abuse screen: Denies threats or abuse. Denies injuries from another. Nutritional screening: No deficits noted. Tuberculosis screening: No symptoms or risk factors identified. Assessment: 19:05 General: Appears in no apparent distress. comfortable, Behavior is calm, cooperative. lg3 Pain: Complains of pain in upper left third molar (#16) Pain currently is 5 out of 10 on a pain scale. Aggravated by eating, drinking. Neuro: No deficits noted. Leiva Agitation-Sedation Scale (RASS): 0 - Alert and Calm Level of Consciousness is awake, alert, obeys commands, Oriented to person, place, time, situation. Cardiovascular: No deficits noted. Denies chest pain, shortness of breath, Capillary refill < 3 seconds Clubbing of nail beds is absent JVD is absent Patient's skin is warm and dry. Respiratory: No deficits noted. Airway is patent Respiratory effort is even, unlabored, Respiratory pattern is regular, symmetrical. GI: No deficits noted. No signs and/or symptoms were reported involving the gastrointestinal system. : No deficits noted. No signs and/or symptoms were reported regarding the genitourinary system. EENT: Reports pain in upper left third molar (#16). Derm: No deficits noted. No signs and/or symptoms reported regarding the dermatologic system. Skin is intact, is healthy with good turgor, Skin is dry, Skin is normal, Skin temperature is warm. Musculoskeletal: No deficits noted. No signs and/or symptoms reported regarding the musculoskeletal system. Circulation, motion, and sensation intact. Range of motion: intact in all extremities. Vital Signs: 18:25 BP 125 / 75; Pulse 60; Resp 16; Temp 98.4; Pulse Ox 100% ; Weight 79.38 kg; Height 5 iw ft. 7 in. ; Pain 7/10; 19:54 BP 124 / 70; Pulse 67; Resp 17 S; Temp 98.1(O); Pulse Ox 100% on R/A; lg3 18:25 Body Mass Index 27.41 (79.38 kg, 170.18 cm) iw 18:25 Pain Scale: Adult iw ED Course: 17:57 Patient arrived in ED. ra3 17:58 Edi Robison PA is PHCP. cp 17:58 Christian Melton MD is Attending Physician. cp 18:27 Triage completed. iw 18:27 Arm band placed on. iw 19:05 Patient has correct armband on for positive identification. lg3 19:05 No provider procedures requiring assistance completed. lg3 19:55 Patient did not have IV access during this emergency room visit. lg3 Administered Medications: 19:49 Drug: Ibuprofen PO 800 mg PO once Route: PO; lg3 19:55 Follow up: Response: No adverse reaction lg3 19:49 Drug: traMADol PO 50 mg PO once Route: PO; lg3 19:55 Follow up: Response: No adverse reaction; Medication administered at discharge. lg3 19:49 Drug: Clindamycin PO 300 mg PO once Route: PO; lg3 19:55 Follow up: Response: No adverse reaction lg3 Medication: 19:05 VIS not applicable for this client. lg3 Outcome: 18:33 Discharge ordered by . cp 19:54 Discharged to home ambulatory, lg3 19:54 Condition: stable 19:54 Discharge instructions given to patient, Instructed on discharge instructions, follow up and referral plans. medication usage, Demonstrated understanding of instructions, follow-up care, medications, Prescriptions given X 2, 19:55 Patient left the ED. lg3 Signatures: Fatmata Dumont, RN JARVIS Edi Robison PA PA cp Able, Lacie, RN RN lg3 Tete Garrett 3
--- NOTE | 2024-02-16 18:34 | EDPHYS ---
Physician Documentation [facility] Name: Latrell Tam Age: 28 yrs Sex: Female : 1995 Arrival Date: 02/16/2024 Time: 17:56 Bed IW2 Private MD: ED Physician Christian Melton HPI: 02/15 18:14 This 28 yrs old Female presents to ER via Unassigned with complaints of Toothache - cp Abscess. 18:14 The patient presents with pain. The problem is located in the left upper jaw. Onset: cp The symptoms/episode began/occurred past several days with pain worse today. Duration: The symptoms are continuous, and are steadily getting worse. Associated signs and symptoms: Pertinent positives: pain, Pertinent negatives: dysphagia, fever, inability to eat, vomiting. Severity of symptoms: in the emergency department the symptoms are unchanged, despite home interventions. Historical: - Allergies: 18:26 No Known Allergies; iw - Home Meds: 18:26 None [Active]; iw - PMHx: 18:26 None; iw - Immunization history:: Adult Immunizations not up to date. - Infectious Disease History:: Denies. - Social history:: Smoking status: Reported history of juuling and/or vaping. ROS: 18:15 Eyes: Negative for injury, pain, redness, and discharge, cp 18:15 Constitutional: Negative for body aches, fever, poor PO intake, 18:15 ENT: Positive for dental pain, Negative for drainage from ear(s), ear pain, sore throat, difficulty swallowing, difficulty handling secretions, 18:15 Respiratory: Negative for cough, shortness of breath, wheezing, 18:15 Abdomen/GI: Negative for abdominal pain, nausea, vomiting, and diarrhea, 18:15 Neuro: Negative for altered mental status, headache, weakness, 18:15 All other systems are negative, Exam: 18:16 Head/Face: Normocephalic, atraumatic. cp 18:16 Constitutional: The patient appears in no acute distress, alert, awake, non-toxic, well developed, well nourished, 18:16 Eyes: Periorbital structures: appear normal, Conjunctiva: normal, no exudate, no injection, Sclera: no appreciated abnormality, Lids and lashes: appear normal, bilaterally, 18:16 ENT: External ear(s): are unremarkable, Nose: is normal, Mouth: Lips: moist, Oral mucosa: moist, Posterior pharynx: Airway: no evidence of obstruction, patent, Dental exam: abscess, that is mild, specifically in the inner gumline and upper palate, fractured teeth are noted, specifically the upper left third molar (#16), pain, that is moderate, specifically in the upper left third molar (#16), Voice: is normal, 18:16 Neck: ROM/movement: Meningeal signs: are not present, nuchal rigidity, is not appreciated, 18:16 Chest/axilla: Inspection: normal, 18:16 Respiratory: the patient does not display signs of respiratory distress, Respirations: normal, no use of accessory muscles, no retractions, labored breathing, is not present, 18:16 Abdomen/GI: Exam negative for discomfort, distension, guarding, Inspection: abdomen appears normal, Vital Signs: 18:25 BP 125 / 75; Pulse 60; Resp 16; Temp 98.4; Pulse Ox 100% ; Weight 79.38 kg; Height 5 iw ft. 7 in. ; Pain 7/10; 19:54 BP 124 / 70; Pulse 67; Resp 17 S; Temp 98.1(O); Pulse Ox 100% on R/A; lg3 18:25 Body Mass Index 27.41 (79.38 kg, 170.18 cm) iw 18:25 Pain Scale: Adult iw MDM: 18:20 Differential diagnosis: dental caries, gingivitis, dental abscess, pericoronitis. cp 18:22 Medical Screening Exam initiated cp 18:33 Data reviewed: vital signs, nurses notes, and as a result, I will discharge patient. cp 18:33 Counseling: I had a detailed discussion with the patient and/or guardian regarding the cp historical points, exam findings, and any diagnostic results supporting the discharge/admit diagnosis, the need for outpatient follow up, for definitive care, a dentist, to return to the emergency department if symptoms worsen or persist or if there are any questions or concerns that arise at home. Administered Medications: 19:49 Drug: Ibuprofen PO 800 mg PO once Route: PO; lg3 19:55 Follow up: Response: No adverse reaction lg3 19:49 Drug: traMADol PO 50 mg PO once Route: PO; lg3 19:55 Follow up: Response: No adverse reaction; Medication administered at discharge. lg3 19:49 Drug: Clindamycin PO 300 mg PO once Route: PO; lg3 19:55 Follow up: Response: No adverse reaction lg3 Disposition: 02/16 08:10 Co-signature as Attending Physician, Christian Melton MD I reviewed the patient's care rt provided by the Advanced Practice Provider and agree with the diagnosis and treatment plan. Disposition Summary: 02/16/24 18:33 Discharge Ordered Notes: Location: Home cp Problem: new cp Symptoms: have improved cp Condition: Stable cp Diagnosis - Disorder of teeth and supporting structures, unspecified cp Followup: cp - With: Private Physician - When: 2 - 3 days - Reason: Worsening of condition Discharge Instructions: - Discharge Summary Sheet cp - Dental Abscess cp - Dental Pain cp Forms: - Medication Reconciliation Form cp - Antibiotic Education cp - Prescription Opioid Use cp - Patient Portal Instructions cp - Leadership Thank You Letter cp Prescriptions: - Clindamycin HCl 300 mg Oral Capsule - take 1 capsule ORAL route every 6 hours for 10 days; 40 capsule; Refills: 0, cp Product Selection Permitted - Ibuprofen 800 mg Oral Tablet - take 1 tablet ORAL route every 8 hours As needed take with food; 30 tablet; cp Refills: 0, Product Selection Permitted Signatures: Fatmata Dumont RN RN Edi Machado PA PA cp Able, Lacie, RN RN lg3 Christian Melton MD MD rt Corrections: (The following items were deleted from the chart) 19:27 02/15 18:40 Differential diagnosis: dental caries, gingivitis, dental abscess, cp pericoronitis, cp
[2024-02-16] MEDS ORDERED: IBUPROFEN 400 MG TAB ONE (19:45)
[2024-02-16] MEDS ORDERED: TRAMADOL HCL 50 MG TAB ONE (19:45)
[2024-02-16 19:59] VITALS: O2SAT 100
[2024-02-16 20:00] VITALS: BP 124/70; TEMP 98.1
== END 2024-02-16 19:55 | disposition home or self-care (01) ==
LOC: ER 17:56
DX: K04.7 Periapical abscess without sinus (principal); S02.5XXA Fracture of tooth (traumatic), initial encounter for closed fracture
CPT/HCPCS: 99283

== ENCOUNTER 2024-04-17 08:06 | Emergency (ER) | payer SELFPAY ==
[2024-04-17] MEDS ORDERED: NA CHLORIDE 0.9% 1,000 ML ONE (08:37)
[2024-04-17] MEDS ORDERED: ONDANSETRON 4 MG/2 ML VIAL ONE (08:37)
[2024-04-17 08:46] LABS: Absolute Basophils 0.1 K/uL (0-0.5); Absolute Lymphocytes (CBC) 3.1 K/uL (0.7-4.9); Absolute Monocytes 0.5 K/uL (0.1-1.3); Absolute Neutrophil 8.1 K/uL (1.8-8.0); Eosinophils % 0.4 % (0-4.4); Hematocrit 43.2 % (36.0-45.0); Hemoglobin 14.4 g/dL (12.0-15.0); Lymphocytes % 26.2 % (15.3-44.8); MCH 30.1 pg (27.0-35.0); MCHC 33.3 g/dL (32.0-36.0); MCV 90.1 fL (80-100); MPV 8.7 fL (7.6-11.3); Monocytes % 4.5 % (3.3-12.3); Neutrophils % 67.9 % (41.7-73.7); Nucleated Red Blood Cells % 0.1 % (0-0); Platelets 340 thou/uL (152-406); Red Cell Distribution Width 14.1 % (12.1-15.2)
[2024-04-17 09:22] LABS: Anion Gap 10.9 mEq/L (5.0-15.0); Bilirubin Total 3.7 mg/dL (0.2-1.0); Globulin 4.1 g/dL (2.3-3.5); Potassium 3.9 mEq/L (3.5-5.1); Protein, Total 8.1 g/dL (6.4-8.2)
[2024-04-17 09:37] LABS: SARS-CoV-2 Antigen CONTROL BLUE LINE VIS/BG OK; SARS-CoV-2 Antigen Rapid Res Negative (Negative)
[2024-04-17 09:42] LABS: Specific Gravity 1.028 (1.005-1.030)
[2024-04-17 09:43] LABS: Specific Gravity 1.028 (1.005-1.030); Urine Bilirubin NEGATIVE (Negative); Urine Blood 1+ (Negative); Urine Clarity Turbid (Clear); Urine Color Yellow (Yellow); Urine Glucose Negative (Negative); Urine Ketones Negative (Negative); Urine Nitrite Negative (Negative); Urine Protein 1+ (Negative); Urine Urobilinogen Normal mg/dL (0.2-1.0)
[2024-04-17 09:44] LABS: Urine WBC <5 /HPF (<5)
[2024-04-17 09:45] LABS: Sqamous Epithelial None Seen /HPF (None Seen); Urine Bacteria None Seen /HPF (<20); Urine Culture Reflex Order NOT NEEDED; Urine Microscopic Reflex YN NO UMIC; Urine Mucus Slight /HPF (None Seen); Urine RBC <5 /HPF (None Seen)
--- NOTE | 2024-04-17 10:21 | RAD REPORT ---
EXAMINATION: US Abdomen Exam Limited CLINICAL HISTORY: [facility] vomiting, elevated bili Bed Name: COMPARISON: 09/24/2017 CT abdomen and pelvis TECHNIQUE: Limited upper abdominal grayscale and color flow sonographic images. FINDINGS: Gallbladder: Numerous echogenic shadowing stones and sludge. No gallbladder wall thickening. No peric holecystic fluid. No reported pain over the gallbladder region. Bile ducts: No intrahepatic or extrahepatic biliary dilatation. Common bile duct measures 5 mm. Liver: Visualized portions of the liver demonstrate normal echogenicity with no suspicious findings. Fluid: No ascites. IMPRESSION: Cholelithiasis. No sonographic findings to suggest acute cholecystitis.
--- NOTE | 2024-04-17 11:03 | EDPHYS ---
Physician Documentation [facility] Name: Latrell Tam Age: 28 yrs Sex: Female : 1995 Arrival Date: 04/17/2024 Time: 08:06 Bed 8 Private MD: ED Physician Bladimir Ballard HPI: 04/17 09:53 This 28 yrs old Female presents to ER via Ambulatory with complaints of nausea, rn diarrhea. 09:53 The patient presents to the emergency department with nausea, diarrhea. Onset: The rn symptoms/episode began/occurred last night. Possible causes: unknown. The symptoms are aggravated by nothing. The symptoms are alleviated by nothing. Severity of symptoms: At their worst the symptoms were moderate in the emergency department the symptoms are unchanged. The patient has not experienced similar symptoms in the past. Patient reports started last night with nausea and diarrhea. Denies focal abdominal pain or any abdominal pain at all. No fever. Does report subjective chills and malaise. Also reports congestion, cough, along with diarrhea. Has had multiple sick contacts recently.. 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 - Infectious Disease History:: Denies. - Social history:: Smoking status: Reported history of juuling and/or vaping. - Family history:: not pertinent. - Hospitalizations: : No recent hospitalization is reported. ROS: 09:53 Constitutional: Negative for fever, positive for chills Cardiovascular: Negative for rn chest pain, palpitations, and edema, Respiratory: Negative for shortness of breath, cough, wheezing, and pleuritic chest pain, Abdomen/GI: Positive for nausea and diarrhea. Negative for abdominal pain Back: Negative for injury and pain, : Negative for injury, bleeding, discharge, and swelling, MS/Extremity: Negative for injury and deformity, Neuro: Positive for generalized malaise and weakness Exam: 09:53 Constitutional: This is a well developed, well nourished patient who is awake, alert, rn and in no acute distress. ENT: Dry mucous membranes Cardiovascular: Tachycardic, regular Abdomen/GI: Soft, nontender. Negative Russell. No right lower quadrant tenderness or guarding. No peritoneal signs. No distention. Skin: No rash Neuro: Awake and alert, GCS 15 Vital Signs: 08:14 BP 143 / 72; Pulse 112; Resp 18; Pulse Ox 100% on R/A; Weight 78.93 kg; Height 5 ft. 7 iw in. ; Pain 0/10; 10:30 BP 108 / 71; Pulse 76; Resp 17; Pulse Ox 98% ; rs5 11:10 BP 115 / 77; Pulse 70; Resp 17; Pulse Ox 99% on R/A; rs5 08:14 Body Mass Index 27.25 (78.93 kg, 170.18 cm) iw 08:14 Pain Scale: Adult iw MDM: 08:12 Medical Screening Exam initiated rn 11:00 Differential diagnosis: Nonspecific abd pain, gastritis, cholecystitis, pancreatitis, rn viral gastroenteritis. Data reviewed: vital signs, nurses notes, lab test result(s), radiologic studies, ultrasound, and as a result, I will discharge patient. Counseling: I had a detailed discussion with the patient and/or guardian regarding the historical points, exam findings, and any diagnostic results supporting the discharge/admit diagnosis, lab results, radiology results, the need for outpatient follow up, to return to the emergency department if symptoms worsen or persist or if there are any questions or concerns that arise at home. Special discussion: I discussed with the patient/guardian in detail that at this point there is no indication for admission to the hospital. It is understood, however, that if the symptoms persist or worsen the patient needs to return immediately for re-evaluation. ED course: No acute findings and workup today. Most likely viral illness of the intestine given primarily diarrhea and nausea. Ultrasound shows coincidental gallbladder stones but no cholecystitis. Patient has elevated bilirubin, which has slowly been getting higher and higher over the visits in years. Recommend cessation of alcohol, improving diet and GI follow-up for that. Still no abdominal pain or tenderness, will discharge home with as needed Zofran and return precautions.. 04/17 08:23 Order name: CBC with Diff; Complete Time: 09:30 rn 04/17 08:23 Order name: CMP; Complete Time: :30 rn 04/17 08:23 Order name: Lipase; Complete Time: :30 rn 04/17 08:23 Order name: Test, Urine; Complete Time: 09:52 rn 04/17 08:23 Order name: Urinalysis w/ reflexes; Complete Time: 09:52 rn 04/17 08:23 Order name: Flu; Complete Time: 09:52 rn 04/17 08:23 Order name: SARS-COV-2 Antigen Rapid; Complete Time: 09:52 rn 04/17 09:53 Order name: US Abdomen Limited; Complete Time: 10:30 rn 04/17 08:23 Order name: IV Saline Lock; Complete Time: 08:42 rn 04/17 08:23 Order name: Labs collected and sent; Complete Time: 08:42 rn Administered Medications: 08:42 Drug: Ondansetron IVP 4 mg IVP once; over 2 minutes Route: IVP; Site: left antecubital; rs5 09:10 Follow up: Response: No adverse reaction; Nausea is decreased rs5 08:43 Drug: NS 0.9% IV 1000 ml IV at 1 bolus Per protocol; to be given as a bolus over 60 rs5 minutes Route: IV; Rate: 1 bolus; Site: left antecubital; 09:35 Follow up: Response: No adverse reaction; IV Status: Completed infusion; IV Intake: rs5 999ml Disposition Summary: 04/17/24 11:02 Discharge Ordered Notes: Location: Home rn Problem: new rn Symptoms: have improved rn Condition: Stable rn Diagnosis - Infectious gastroenteritis and colitis, unspecified rn Followup: rn - With: Private Physician - When: As needed - Reason: Recheck today's complaints, Re-evaluation by your physician Discharge Instructions: - Discharge Summary Sheet rn - Diarrhea, Adult rn - Nausea and Vomiting, Adult rn Forms: - Medication Reconciliation Form rn - Antibiotic rn team leader - Prescription Opioid Use rn - Patient Portal Instructions rn - Leadership Thank You Letter rn Prescriptions: - ondansetron 4 mg Oral Tablet,disintegrating - take 1 tablet ORAL route every 8 hours As needed; 12 tablet; Refills: 0, rn Product Selection Permitted - Augmentin 875-125 mg Oral Tablet - take 1 tablet ORAL route every 12 hours for 10 days; 20 tablet; Refills: 0, rn Product Selection Permitted Signatures: Dispatcher [employer] Fatmata Salomon RN RN iw Ballard, Bladimir, MD MD rn Escudero, Jeyson, RN RN rs5
--- NOTE | 2024-04-17 11:03 | ER ---
Nurse's Notes [facility] Name: Latrell Tam Age: 28 yrs Sex: Female : 1995 Arrival Date: 04/17/2024 Time: 08:06 Bed 8 Private MD: Diagnosis: Infectious gastroenteritis and colitis, unspecified Presentation: 04/17 08:14 Chief complaint: Patient states: woke up at 3 am and was vomiting and sweating, also iw had diarrhea , denies abd pain. Coronavirus screen: Client presents with at least one sign or symptom that may indicate coronavirus-19. Ebola Screen: No symptoms or risks identified at this time. Initial Sepsis Screen: Does the patient meet any 2 criteria? No. Patient's initial sepsis screen is negative. Does the patient have a suspected source of infection? No. Patient's initial sepsis screen is negative. Risk Assessment: Do you want to hurt yourself or someone else? Patient reports no desire to harm self or others. Onset of symptoms was April 17, 2024. 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 - Infectious Disease History:: Denies. - Social history:: Smoking status: Reported history of juuling and/or vaping. - Family history:: not pertinent. - Hospitalizations: : No recent hospitalization is reported. Screenin:18 [facility] ED Fall Risk Assessment (Adult) History of falling in the last 3 months, rs5 including since admission No falls in past 3 months (0 pts) Confusion or Disorientation No (0 pts) Intoxicated or Sedated No (0 pts) Impaired Gait No (0 pts) Mobility Assist Device Used No (0 pt) Altered Elimination No (0 pt) Score/Fall Risk Level 0 - 2 = Low Risk Oriented to surroundings, Maintained a safe environment. Abuse screen: Denies threats or abuse. Nutritional screening: No deficits noted. Tuberculosis screening: No symptoms or risk factors identified. Assessment: 08:20 General: Appears in no apparent distress. comfortable, Behavior is calm, cooperative. rs5 Pain: Denies pain. Neuro: Level of Consciousness is awake, alert, obeys commands, Oriented to person, place, time, situation. Cardiovascular: Patient's skin is warm and dry. Respiratory: Airway is patent Respiratory effort is even, unlabored. 08:20 GI: Abdomen is round non-distended, Abd is soft and non tender X 4 quads. Reports rs5 nausea. GI: Reports diarrhea. : No signs and/or symptoms were reported regarding the genitourinary system. EENT: No signs and/or symptoms were reported regarding the EENT system. Derm: Skin is intact, Skin is pink, warm \T\ dry. 08:20 Musculoskeletal: Range of motion: intact in all extremities. rs5 09:25 Reassessment: Patient and/or family updated on plan of care and expected duration. Pain rs5 level reassessed. Patient is alert, oriented x 3, equal unlabored respirations, skin warm/dry/pink. 10:37 Reassessment: Patient and/or family updated on plan of care and expected duration. Pain rs5 level reassessed. Patient is alert, oriented x 3, equal unlabored respirations, skin warm/dry/pink. 11:22 Reassessment: Patient and/or family updated on plan of care and expected duration. Pain rs5 level reassessed. Patient is alert, oriented x 3, equal unlabored respirations, skin warm/dry/pink. Vital Signs: 08:14 BP 143 / 72; Pulse 112; Resp 18; Pulse Ox 100% on R/A; Weight 78.93 kg; Height 5 ft. 7 iw in. ; Pain 0/10; 10:30 BP 108 / 71; Pulse 76; Resp 17; Pulse Ox 98% ; rs5 11:10 BP 115 / 77; Pulse 70; Resp 17; Pulse Ox 99% on R/A; rs5 08:14 Body Mass Index 27.25 (78.93 kg, 170.18 cm) iw 08:14 Pain Scale: Adult iw ED Course: 08:10 Patient arrived in ED. sj2 08:12 Bladimir Ballard MD is Attending Physician. rn 08:15 Triage completed. iw 08:16 Arm band placed on. iw 08:17 Jeyson Escudero, RN is Primary Nurse. rs5 08:18 Patient has correct armband on for positive identification. Placed in gown. Bed in low rs5 position. Call light in reach. Side rails up X2. 08:18 No provider procedures requiring assistance completed. rs5 10:10 US Abdomen Limited In Process Unspecified. EDMS 11:01 Provided Education on: discharge instructions . rs5 11:23 IV discontinued, intact, bleeding controlled, No redness/swelling at site. Pressure rs5 dressing applied. Administered Medications: 08:42 Drug: Ondansetron IVP 4 mg IVP once; over 2 minutes Route: IVP; Site: left antecubital; rs5 09:10 Follow up: Response: No adverse reaction; Nausea is decreased rs5 08:43 Drug: NS 0.9% IV 1000 ml IV at 1 bolus Per protocol; to be given as a bolus over 60 rs5 minutes Route: IV; Rate: 1 bolus; Site: left antecubital; 09:35 Follow up: Response: No adverse reaction; IV Status: Completed infusion; IV Intake: rs5 999ml Medication: 09:00 VIS not applicable for this client. rs5 Intake: 09:35 IV: 999ml; Total: 999ml. rs5 Outcome: 11:02 Discharge ordered by . rn 11:23 Discharged to home ambulatory, rs5 11:23 Condition: stable rs5 11:23 Discharge instructions given to patient, family, Instructed on discharge instructions, follow up and referral plans. medication usage, Demonstrated understanding of instructions, follow-up care, Prescriptions given X 1, 11:24 Patient left the ED. rs5 Signatures: Dispatcher [employer] EDFatmata Martini RN RN iw Nieto, Roman, MD MD rn Sotelo, Ricky, RN RN rs5 Veronique Collins sj2 Corrections: (The following items were deleted from the chart) 11: 08:20 GI: Reports diarrhea, rs5 rs5 11:27 11:27 Reassessment: Patient and/or family updated on plan of care and expected rs5 duration. Pain level reassessed. Patient is alert, oriented x 3, equal unlabored respirations, skin warm/dry/pink. rs5
[2024-04-17 11:31] VITALS: BP 108/71; O2SAT 98
== END 2024-04-17 11:24 | disposition home or self-care (01) ==
LOC: ER 08:06
DX: A09 Infectious gastroenteritis and colitis, unspecified (principal); Z11.52 Encounter for screening for COVID-19
CPT/HCPCS: 36415; 76705; 80053; 81003; 81025; 83690; 85025; 87804; 87811; 96361; 96374; 99284; J2405; J7030

== ENCOUNTER 2024-08-08 09:32 | Emergency (ER) | payer SELFPAY ==
[2024-08-08] MEDS ORDERED: NA CHLORIDE 0.9% 1,000 ML ONE ×2 (09:53→10:31)
[2024-08-08 10:20] LABS: Specific Gravity 1.005 (1.005-1.030)
[2024-08-08 10:21] LABS: Specific Gravity < 1.005 (1.005-1.030); Sqamous Epithelial <5 /HPF (None Seen); Urine Bacteria <20 /HPF (<20); Urine Bilirubin NEGATIVE (Negative); Urine Blood Negative (Negative); Urine Clarity Turbid (Clear); Urine Color Colorless (Yellow); Urine Culture Reflex Order NOT NEEDED; Urine Glucose NEGATIVE (Negative); Urine Ketones NEGATIVE (Negative); Urine Microscopic Reflex YN ORDER UMIC; Urine Nitrite NEGATIVE (Negative); Urine Protein NEGATIVE (Negative); Urine RBC None Seen /HPF (None Seen); Urine Urobilinogen Normal (Normal); Urine WBC <5 /HPF (<5); Urine pH 6.5 (5.0-7.0)
[2024-08-08 10:22] LABS: Absolute Lymphocytes (CBC) 4.8 K/uL (0.7-4.9); Absolute Monocytes 0.9 K/uL (0.1-1.3); Absolute Neutrophil 5.9 K/uL (1.8-8.0); Basophils % 0.3 % (0-1.3); Eosinophils % 0.4 % (0-4.4); Hematocrit 40.8 % (36.0-45.0); Lymphocytes % 40.8 % (15.3-44.8); MCH 30.6 pg (27.0-35.0); MCHC 34.2 g/dL (32.0-36.0); MCV 89.3 fL (80-100); MPV 8.5 fL (7.6-11.3); Monocytes % 7.8 % (3.3-12.3); Neutrophils % 50.7 % (41.7-73.7); Platelets 309 thou/uL (152-406); RBC Red Blood Cell Count 4.57 M/uL (3.86-4.86); Red Cell Distribution Width 13.4 % (12.1-15.2)
[2024-08-08 10:46] LABS: Albumin 4.2 g/dL (3.4-5.0); Anion Gap 13.5 mEq/L (5.0-15.0); Bilirubin Total 3.6 mg/dL (0.2-1.0); Globulin 4.2 g/dL (2.3-3.5); Potassium 3.5 mEq/L (3.5-5.1); Protein, Total 8.4 g/dL (6.4-8.2)
--- NOTE | 2024-08-08 11:13 | EDPHYS ---
Physician Documentation [facility] Name: Latrell Tam Age: 28 yrs Sex: Female : 1995 Arrival Date: 08/08/2024 Time: 09:32 Bed DX3 Private MD: ED Physician Edi Jules HPI: 08/08 10:12 This 28 yrs old Female presents to ER via Ambulatory with complaints of Near faith Syncope, Lightheaded. 10:12 The patient has experienced near-syncope. Onset: The symptoms/episode began/occurred 3 faith day(s) ago. Duration: The patient has had multiple episodes, that last 20 second(s). Context: the episode(s) was witnessed, by a bystander, occurred at home. Associated injury: The patient did not suffer any apparent associated injury. Associated signs and symptoms: Pertinent positives: weakness. Current symptoms: Currently, the patient is not experiencing any symptoms. The patient has experienced similar episodes in the past, a few times. 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 - Social history:: Smoking status: Patient denies any tobacco usage or history of. - Family history:: not pertinent. ROS: 10:12 Constitutional: Negative for fever, chills, and weight loss, Eyes: Negative for injury, faith pain, redness, and discharge, ENT: Negative for injury, pain, and discharge, Neck: Negative for injury, pain, and swelling, Cardiovascular: Negative for chest pain, palpitations, and edema, Respiratory: Negative for shortness of breath, cough, wheezing, and pleuritic chest pain, Abdomen/GI: Negative for abdominal pain, nausea, vomiting, diarrhea, and constipation, Back: Negative for injury and pain, : Negative for injury, bleeding, discharge, and swelling, MS/Extremity: Negative for injury and deformity, Skin: Negative for injury, rash, and discoloration, Psych: Negative for depression, anxiety, suicide ideation, homicidal ideation, and hallucinations, Allergy/Immunology: Negative for hives, rash, and allergies, Endocrine: Negative for neck swelling, polydipsia, polyuria, polyphagia, and marked weight changes, Hematologic/Lymphatic: Negative for swollen nodes, abnormal bleeding, and unusual bruising, 10:12 Neuro: Positive for near syncope, Exam: 10:12 Constitutional: This is a well developed, well nourished patient who is awake, alert, faith and in no acute distress. Head/Face: Normocephalic, atraumatic. Eyes: Pupils equal round and reactive to light, extra-ocular motions intact. Lids and lashes normal. Conjunctiva and sclera are non-icteric and not injected. Cornea within normal limits. Periorbital areas with no swelling, redness, or edema. ENT: Nares patent. No nasal discharge, no septal abnormalities noted. Tympanic membranes are normal and external auditory canals are clear. Oropharynx with no redness, swelling, or masses, exudates, or evidence of obstruction, uvula midline. Mucous membranes moist. Neck: Trachea midline, no thyromegaly or masses palpated, and no cervical lymphadenopathy. Supple, full range of motion without nuchal rigidity, or vertebral point tenderness. No Meningismus. Chest/axilla: Normal chest wall appearance and motion. Nontender with no deformity. No lesions are appreciated. Cardiovascular: Regular rate and rhythm with a normal S1 and S2. No gallops, murmurs, or rubs. Normal PMI, no JVD. No pulse deficits. Respiratory: Lungs have equal breath sounds bilaterally, clear to auscultation and percussion. No rales, rhonchi or wheezes noted. No increased work of breathing, no retractions or nasal flaring. Abdomen/GI: Soft, non-tender, with normal bowel sounds. No distension or tympany. No guarding or rebound. No evidence of tenderness throughout. Back: No spinal tenderness. No costovertebral tenderness. Full range of motion. Skin: Warm, dry with normal turgor. Normal color with no rashes, no lesions, and no evidence of cellulitis. MS/ Extremity: Pulses equal, no cyanosis. Neurovascular intact. Full, normal range of motion., bilateral aka Neuro: Awake and alert, GCS 15, oriented to person, place, time, and situation. Cranial nerves II-XII grossly intact. Motor strength 5/5 in all extremities. Sensory grossly intact. Cerebellar exam normal. Normal gait. Psych: Awake, alert, with orientation to person, place and time. Behavior, mood, and affect are within normal limits. 10:12 ECG was reviewed by the Attending Physician. Vital Signs: 09:54 BP 118 / 81; Pulse 89; Resp 14; Temp 97.7(O); Pulse Ox 99% on R/A; Weight 79.38 kg; ss Height 5 ft. 7 in. ; Pain 0/10; 10:10 BP 109 / 73 Supine; Pulse 89; aa5 10:12 BP 106 / 79 Sitting; Pulse 105; aa5 10:14 BP 96 / 61 Standing; Pulse 125; aa5 10:35 BP 91 / 70; Pulse 85; Resp 16 S; Pulse Ox 99% on R/A; aa5 11:06 BP 103 / 73; Pulse 80; Resp 15; Pulse Ox 100% ; jl7 09:54 Body Mass Index 27.41 (79.38 kg, 170.18 cm) ss 09:54 Pain Scale: Adult ss 10:14 Pt c/o feeling dizzy and lightheaded, was notified of orthostatic VS. aa5 MDM: 09:36 Medical Screening Exam initiated faith 10:15 Differential Diagnosis: cardiac arrhythmia, emotional response, GI bleed, seizure, faith vasovagal episode. Data reviewed: vital signs, nurses notes, lab test result(s), EKG. Consideration of Admission/Observation Escalation of care including admission/observation considered. I considered the following discharge prescriptions or medication management in the emergency department Medications were administered in the Emergency Department. See MAR. Independent interpretation of the following test(s) in the Emergency Department EKG: See my EKG interpretation above. Test considered but Not performed: CT: no ct head. Historians other than the Patient: pt well informed. Care significantly affected by the following chronic conditions: liver, kidney. Counseling: I had a detailed discussion with the patient and/or guardian regarding the historical points, exam findings, and any diagnostic results supporting the discharge/admit diagnosis, lab results, radiology results. 08/08 09:38 Order name: CBC with Diff; Complete Time: 11:10 [facility] 08/08 09:38 Order name: Comprehensive Metabolic Panel; Complete Time: 11:10 [facility] 08/08 09:38 Order name: Urinalysis w/ reflexes; Complete Time: 11:10 [facility] 08/08 09:38 Order name: PREGU; Complete Time: 11:10 [facility] 08/08 09:38 Order name: EKG; Complete Time: 09:38 [facility] 08/08 09:38 Order name: EKG - Nurse/Tech; Complete Time: 10:10 [facility] 08/08 09:38 Order name: Orthostatics; Complete Time: 10:19 [facility] 08/08 10:17 Order name: PO challenge; Complete Time: 12:45 faith EC:12 Rate is 93 beats/min. Rhythm is regular. QRS [place] is Normal. [place] interval is normal. QRS faith interval is normal. QT interval is normal. No Q waves. T waves are Normal. No ST changes noted. Clinical impression: NSR w/ Non-specific ST/T Changes and No evidence of ischemia. Interpreted by me. Reviewed by me. Administered Medications: 10:19 Drug: NS 0.9% IV 1000 ml IV at 1000 ml once; to be given as a bolus over 60 minutes aa5 Route: IV; Rate: 1000 ml; Site: left antecubital; 10:36 Drug: NS 0.9% IV 1000 ml IV at 1000 ml once; to be given as a bolus over 60 minutes aa5 Route: IV; Rate: 1000 ml; Site: left antecubital; Disposition Summary: 08/08/24 11:12 Discharge Ordered Notes: Location: Home faith Problem: new faith Symptoms: have improved faith Condition: Stable faith Diagnosis - Syncope Near faith - Dehydration faith Followup: faith - With: Private Physician - When: 2 - 3 days - Reason: Recheck today's complaints, Continuance of care, Re-evaluation by your physician Discharge Instructions: - Discharge Summary Sheet faith - Dehydration, Adult faith - Near-Syncope faith - Near-Syncope, [id number] faith - Rehydration, Adult faith Forms: - Medication Reconciliation Form faith - Antibiotic Education faith - Prescription Opioid Use faith - Patient Portal Instructions faith - Leadership Thank You Letter [facility] Prescriptions: - ondansetron 8 mg Oral Tablet,disintegrating - take 1 tablet ORAL route every 8 hours prn; 20 tablet; Refills: 0, Product faith Selection Permitted Signatures: Dispatcher [employer] Edi Gallegos MD MD cha Calderon, Audri, RN RN aa5 Miriam Pulliam RN RN ss
--- NOTE | 2024-08-08 11:13 | ER ---
Nurse's Notes [facility] Name: Latrell Tam Age: 28 yrs Sex: Female : 1995 Arrival Date: 08/08/2024 Time: 09:32 Bed DX3 Private MD: Diagnosis: Syncope Near;Dehydration Presentation: 08/08 09:54 Chief complaint: Patient states: Synopcal episode yesterday. Pt reports she had an ss episode today where she felt like she may pass out again. Coronavirus screen: Client denies travel out of the [place] in the last 14 days. Ebola Screen: Patient denies exposure to infectious person. Patient denies travel to an Ebola-affected area in the 21 days before illness onset. Initial Sepsis Screen: Does the patient meet any 2 criteria? No. Patient's initial sepsis screen is negative. Does the patient have a suspected source of infection? No. Patient's initial sepsis screen is negative. Risk Assessment: Do you want to hurt yourself or someone else? Patient reports no desire to harm self or others. Onset of symptoms was August 07, 2024. 09:54 Method Of Arrival: Ambulatory ss 09:54 Acuity: MAI 3 ss [employer]: 09:55 LMP 07/2024, unknown ss Historical: - Allergies: 09:55 No Known Allergies; ss - Home Meds: 09:55 None [Active]; ss - PMHx: 09:55 None; ss - PSHx: 09:55 right eye; ss - Infectious Disease History:: Denies. - Social history:: Smoking status: Patient denies any tobacco usage or history of. - Family history:: not pertinent. Screenin:05 [facility] ED Fall Risk Assessment (Adult) History of falling in the last 3 months, aa5 including since admission No falls in past 3 months (0 pts) Confusion or Disorientation No (0 pts) Intoxicated or Sedated No (0 pts) Impaired Gait No (0 pts) Mobility Assist Device Used No (0 pt) Altered Elimination No (0 pt) Score/Fall Risk Level 0 - 2 = Low Risk Oriented to surroundings, Maintained a safe environment, Educated pt \T\ family on fall prevention, incl call for assistance when getting out of bed, Assessed \T\ reinforced patient's understanding of fall precautions. Abuse screen: Denies threats or abuse. Nutritional screening: No deficits noted. Tuberculosis screening: No symptoms or risk factors identified. Assessment: 10:15 General: Appears comfortable, Behavior is calm, cooperative. Pain: Denies pain. Neuro: aa5 Level of Consciousness is awake, alert, obeys commands, Oriented to person, place, time, situation, Reports feeling dizzy and lightheaded upon standing. . Cardiovascular: Heart tones S1 S2 present Rhythm is regular. Respiratory: Airway is patent Respiratory effort is even, unlabored, Respiratory pattern is regular, symmetrical. GI: No signs and/or symptoms were reported involving the gastrointestinal system. Patient currently denies diarrhea, intolerance of fluids, intolerance of food, nausea, vomiting. : No signs and/or symptoms were reported regarding the genitourinary system. EENT: No signs and/or symptoms were reported regarding the EENT system. Derm: Skin is pink, warm \T\ dry. Musculoskeletal: Range of motion: intact in all extremities. 10:37 Reassessment: Patient is alert, oriented x 3, equal unlabored respirations, skin aa5 warm/dry/pink. Given water for PO challenge. . 11:13 Reassessment: Awaiting NS bolus to complete before d/c home . aa5 Vital Signs: 09:54 BP 118 / 81; Pulse 89; Resp 14; Temp 97.7(O); Pulse Ox 99% on R/A; Weight 79.38 kg; ss Height 5 ft. 7 in. ; Pain 0/10; 10:10 BP 109 / 73 Supine; Pulse 89; aa5 10:12 BP 106 / 79 Sitting; Pulse 105; aa5 10:14 BP 96 / 61 Standing; Pulse 125; aa5 10:35 BP 91 / 70; Pulse 85; Resp 16 S; Pulse Ox 99% on R/A; aa5 11:06 BP 103 / 73; Pulse 80; Resp 15; Pulse Ox 100% ; jl7 09:54 Body Mass Index 27.41 (79.38 kg, 170.18 cm) ss 09:54 Pain Scale: Adult ss 10:14 Pt c/o feeling dizzy and lightheaded, was notified of orthostatic VS. aa5 ED Course: 09:35 Patient arrived in ED. cj3 09:36 Edi Jules MD is Attending Physician. faith 09:47 Christin Hill, RN is Primary Nurse. aa5 09:55 Triage completed. ss 09:55 Arm band placed on left wrist. ss 10:05 Patient has correct armband on for positive identification. Placed in gown. Bed in low aa5 position. Call light in reach. Side rails up X 1. 10:10 PREGU Sent. bc6 10:10 Urinalysis w/ reflexes Sent. bc6 10:10 Comprehensive Metabolic Panel Sent. bc6 10:10 CBC with Diff Sent. bc6 10:10 Initial lab(s) drawn, by ri, sent to lab. Urine collected: clean catch specimen, clear, bc6 EKG done, by ED staff, reviewed by Edi Jules MD. Inserted saline lock: 20 gauge in left antecubital area, using aseptic technique. Blood collected. Flushed with 10 mL NS. 10:49 No provider procedures requiring assistance completed. aa5 12:45 IV discontinued, intact, bleeding controlled, No redness/swelling at site. Pressure ss dressing applied. Administered Medications: 10:19 Drug: NS 0.9% IV 1000 ml IV at 1000 ml once; to be given as a bolus over 60 minutes aa5 Route: IV; Rate: 1000 ml; Site: left antecubital; 10:36 Drug: NS 0.9% IV 1000 ml IV at 1000 ml once; to be given as a bolus over 60 minutes aa5 Route: IV; Rate: 1000 ml; Site: left antecubital; Medication: 10:21 VIS not applicable for this client. aa5 Outcome: 11:12 Discharge ordered by . [facility] 12:45 Discharged to home ambulatory, 12:45 Condition: good 12:45 Discharge instructions given to patient, Instructed on discharge instructions, follow up and referral plans. medication usage, Demonstrated understanding of instructions, follow-up care, medications, Prescriptions given X 1, 12:46 Patient left the ED. ss Signatures: Edi Jules MD MD cha Calderon, Audri, RN RN aa5 Miriam Pulliam RN RN Samnatha Kenyon RN RN jl7 Tianna Estes bc6 Cally Grace cj3
--- NOTE | 2024-08-08 11:52 | EKG ---
Test Date: 2024-08-08 Test Time: 09:57:55 Operations Support Manager: SOLOMON MEASUREMENT RESULTS: Intervals: Rate: 93 ND: 150 QRSD: 82 QT: 380 QTc: 472 Marceline: P: 75 ND: 150 QRS: 73 T: 69 INTERPRETIVE STATEMENTS: Normal sinus rhythm Normal ECG Compared to ECG 09/23/2023 11:05:44 Prolonged QT interval no longer present Electronically Signed On 08-08-24 11:51:41 CDT by Brett Chávez
[2024-08-08 13:08] VITALS: TEMP 97.7
[2024-08-08 13:13] VITALS: BP 103/73; O2SAT 100
== END 2024-08-08 12:46 | disposition home or self-care (01) ==
LOC: ER 09:32
DX: R55 Syncope and collapse (principal); E86.0 Dehydration
CPT/HCPCS: 36415; 80053; 81001; 81025; 85025; 93005; 99284; J7030